=== PATIENT | female | born 1975 | race Caucasian/White ===

== ENCOUNTER 2017-05-07 14:33 | Emergency (ER) | payer BC, OTHER ==
--- NOTE | 2017-05-07 17:47 | RAD ---
INDICATION: Possible intracranial hypertension. COMPARISON: No relevant prior exams available on the [facility] PACS for comparison. TECHNIQUE: Dual energy PA and routine lateral views of the chest were obtained. REPORT: Clear lungs and pleural spaces. The heart, pulmonary vasculature, and mediastinal contours are unremarkable. Unremarkable osseous structures and soft tissue contours. IMPRESSION: No evidence for acute intrathoracic disease.
[2017-05-07 18:12] LABS: Hematocrit 41 % (35-47); Hemoglobin 14.3 g/dl (12.0-16.0); Mean Corpuscular HGB Conc 35 g/dl (31-36); Mean Corpuscular Hemoglobin 32 pg (27-31); Mean Corpuscular Volume 93 fL (80-97); Mean Platelet Volume 9 um3 (7.4-10.4); Red Blood Count 4.46 10^6/ul (4.0-5.4); Red Cell Distribution Width 12 % (10.5-15); Urine Bilirubin Negative (Negative); Urine Glucose Negative (Negative); Urine Nitrite Negative (Negative); White Blood Count 6.2 10^3/ul (3.5-10.8)
[2017-05-07 18:26] LABS: ALT 21 U/L (7-52); AST 18 U/L (13-39); Albumin 4.2 g/dL (3.2-5.2); Alkaline Phosphatase 48 U/L (34-104); Anion Gap 7 mmol/L (2-11); Blood Urea Nitrogen 10 mg/dL (6-24); C Reactive Protein 16.14 mg/L (< 5.00); CO2 Carbon Dioxide 26 mmol/L (22-32); Calcium 9.2 mg/dL (8.6-10.3); Chloride 102 mmol/L (101-111); EGFR African American 106.2 (>60); EGFR Non-African American 82.6 (>60); Globulin 3.2 g/dL (2-4); Glucose 101 mg/dL (70-100); Potassium 3.8 mmol/L (3.5-5.0); Sodium 135 mmol/L (133-145); Total Protein 7.4 g/dL (6.4-8.9)
[2017-05-07 18:56] LABS: TSH (Thyroid Stimulating Horm) 2.61 mcIU/mL (0.34-5.60)
--- NOTE | 2017-05-07 19:07 | ED ---
Lon Fowler Alfonso, scribed for Sanford Lr MD on 05/07/17 at 1727 . Neurological HPI - HPI Summary HPI Summary: This patient is a 42 year old female presenting to [facility] for obstructed field of vision since 5 days ago. She was referred to the ED by her Physician who recommends imaging studies to further investigate an inflamed optic nerve. She describes the obstruction as being in her left eye's center top field of vision. She rates the pain 5/10 in severity. Sx aggravated and alleviated by nothing. Pt reports eye socket pain, photophobia, and hay fever. Pt denies weakness, numbness, urinary incontinence, dizziness, and loss of balance. She denies wearing contacts today. PMHx of migraines. - History of Current Complaint Chief Complaint: EDNeurologicalDeficit Stated Complaint: LT VISION INPAIRMENT Time Seen by Provider: 05/07/17 17:18 Hx Obtained From: Patient Onset/Duration: Sudden Onset, Started days ago - 5 days ago, Still Present Timing: Constant Onset Severity: Moderate Current Severity: Moderate Pain Intensity: 5 Pain Scale Used: 0-10 Numeric Character: Sensory Loss - Positive obstruction in her left eye's center top field of vision Aggravating: Nothing Alleviating: Nothing Associated Signs and Symptoms: Positive: Nothing - Positive eye socket pain, photophobia, and hay fever; negative weakness, numbness, urinary incontinence, dizziness, and loss of balance. - Allergy/Home Medications Allergies/Adverse Reactions: Allergies Allergy/AdvReac Type Severity Reaction Status Date / Time Penicillins Allergy Rash Verified 05/07/17 16:35 PMH/Surg Hx/FS Hx/Imm Hx Endocrine/Hematology History: Denies: Hx Diabetes Cardiovascular History: Denies: Hx Hypertension, Hx Pacemaker/ICD History: Denies: Hx Renal Disease Sensory History: Denies: Hx Hearing Aid Neurological History: Reports: Hx Migraine Psychiatric History: Denies: Hx Panic Disorder Infectious Disease History: No Infectious Disease History: Denies: Traveled Outside the [place] in Last 30 Days - Family History Known Family History: Positive: Cardiac Disease, Renal Disease - Renal Failure - Social History Alcohol Use: Weekly Substance Use Type: Reports: None Hx Tobacco Use: No Smoking Status (MU): Never Smoked Tobacco Review of Systems Positive: Fever - Hay fever Positive: Photophobia, Other - Positive obstruction in her left eye's center top field of vision and eye socket pain ENT: Negative Cardiovascular: Negative Respiratory: Negative Gastrointestinal: Negative Genitourinary: Negative Negative: incontinence Musculoskeletal: Negative Skin: Negative Neurological: Other - Negative dizziness and loss of balance Negative: Weakness, Numbness Psychological: Normal All Other Systems Reviewed And Are Negative: Yes Physical Exam Triage Information Reviewed: Yes Vital Signs On Initial Exam: Initial Vitals Temp Pulse Resp BP Pulse Ox 96.9 F 94 17 143/100 97 05/07/17 14:37 05/07/17 14:37 05/07/17 14:37 05/07/17 14:37 05/07/17 14:37 Vital Signs Reviewed: Yes Appearance: Positive: Well-Appearing, No Pain Distress Skin: Positive: Warm, Skin Color Reflects Adequate Perfusion, Dry Head/Face: Positive: Normal Head/Face Inspection Eyes: Positive: EOMI, JANUSZ, Other: - Papilledema left eye ENT: Positive: Normal ENT inspection Neck: Positive: Supple, Nontender Respiratory/Lung Sounds: Positive: Clear to Auscultation, Breath Sounds Present Cardiovascular: Positive: Tachycardia Abdomen Description: Positive: Nontender, Soft Bowel Sounds: Positive: Present Musculoskeletal: Positive: Normal, Strength/ROM Intact Neurological: Positive: Normal, Sensory/Motor Intact, Alert, Oriented to Person Place, Time Psychiatric: Positive: Affect/Mood Appropriate Diagnostics - Vital Signs Vital Signs Temp Pulse Resp BP Pulse Ox 05/07/17 17:07 96.9 F 94 17 143/100 97 05/07/17 14:37 96.9 F 94 17 143/100 97 - Laboratory Lab Results: Lab Results 05/07/17 05/07/17 05/07/17 Range/Units 17:52 17:52 17:52 WBC 6.2 (3.5-10.8) 10^3/ul RBC 4.46 (4.0-5.4) 10^6/ul Hgb 14.3 (12.0-16.0) g/dl Hct 41 (35-47) % MCV 93 (80-97) fL MCH 32 H (27-31) pg MCHC 35 (31-36) g/dl RDW 12 (10.5-15) % Plt Count 263 (150-450) 10^3/ul MPV 9 (7.4-10.4) um3 Neut % (Auto) 55.9 (38-83) % Lymph % (Auto) 36.5 (25-47) % Orange % (Auto) 5.9 (1-9) % Eos % (Auto) 0.9 (0-6) % Baso % (Auto) 0.8 (0-2) % Absolute Neuts (auto) 3.5 (1.5-7.7) 10^3/ul Absolute Lymphs (auto) 2.3 (1.0-4.8) 10^3/ul Absolute Monos (auto) 0.4 (0-0.8) 10^3/ul Absolute Eos (auto) 0.1 (0-0.6) 10^3/ul Absolute Basos (auto) 0 (0-0.2) 10^3/ul Absolute Nucleated RBC 0 10^3/ul Nucleated RBC % 0.1 INR (Anticoag Therapy) 0.89 (0.89-1.11) APTT 27.8 (26.0-36.3) seconds Sodium 135 (133-145) mmol/L Potassium 3.8 (3.5-5.0) mmol/L Chloride 102 (101-111) mmol/L Carbon Dioxide 26 (22-32) mmol/L Anion Gap 7 (2-11) mmol/L BUN 10 (6-24) mg/dL Creatinine 0.77 (0.51-0.95) mg/dL Est GFR ( Amer) 106.2 (>60) Est GFR (Non-Af Amer) 82.6 (>60) BUN/Creatinine Ratio 13.0 (8-20) Glucose 101 H (70-100) mg/dL Lactic Acid (0.5-2.0) mmol/L Calcium 9.2 (8.6-10.3) mg/dL Total Bilirubin 0.30 (0.2-1.0) mg/dL AST 18 (13-39) U/L ALT 21 (7-52) U/L Alkaline Phosphatase 48 (34-104) U/L C-Reactive Protein 16.14 H (< 5.00) mg/L Total Protein 7.4 (6.4-8.9) g/dL Albumin 4.2 (3.2-5.2) g/dL Globulin 3.2 (2-4) g/dL Albumin/Globulin Ratio 1.3 (1-3) TSH 2.61 (0.34-5.60) mcIU/mL Beta HCG, Quant < 0.60 mIU/mL Urine Color Urine Appearance Urine pH (5-9) Ur Specific [place] (1.010-1.030) Urine Protein (Negative) Urine Ketones (Negative) Urine Blood (Negative) Urine Nitrate (Negative) Urine Bilirubin (Negative) Urine Urobilinogen (Negative) Ur Leukocyte Esterase (Negative) Urine Glucose (Negative) 05/07/17 05/07/17 Range/Units 17:52 17:52 WBC (3.5-10.8) 10^3/ul RBC (4.0-5.4) 10^6/ul Hgb (12.0-16.0) g/dl Hct (35-47) % MCV (80-97) fL MCH (27-31) pg MCHC (31-36) g/dl RDW (10.5-15) % Plt Count (150-450) 10^3/ul MPV (7.4-10.4) um3 Neut % (Auto) (38-83) % Lymph % (Auto) (25-47) % Orange % (Auto) (1-9) % Eos % (Auto) (0-6) % Baso % (Auto) (0-2) % Absolute Neuts (auto) (1.5-7.7) 10^3/ul Absolute Lymphs (auto) (1.0-4.8) 10^3/ul Absolute Monos (auto) (0-0.8) 10^3/ul Absolute Eos (auto) (0-0.6) 10^3/ul Absolute Basos (auto) (0-0.2) 10^3/ul Absolute Nucleated RBC 10^3/ul Nucleated RBC % INR (Anticoag Therapy) (0.89-1.11) APTT (26.0-36.3) seconds Sodium (133-145) mmol/L Potassium (3.5-5.0) mmol/L Chloride (101-111) mmol/L Carbon Dioxide (22-32) mmol/L Anion Gap (2-11) mmol/L BUN (6-24) mg/dL Creatinine (0.51-0.95) mg/dL Est GFR ( Amer) (>60) Est GFR (Non-Af Amer) (>60) BUN/Creatinine Ratio (8-20) Glucose (70-100) mg/dL Lactic Acid 0.9 (0.5-2.0) mmol/L Calcium (8.6-10.3) mg/dL Total Bilirubin (0.2-1.0) mg/dL AST (13-39) U/L ALT (7-52) U/L Alkaline Phosphatase (34-104) U/L C-Reactive Protein (< 5.00) mg/L Total Protein (6.4-8.9) g/dL Albumin (3.2-5.2) g/dL Globulin (2-4) g/dL Albumin/Globulin Ratio (1-3) TSH (0.34-5.60) mcIU/mL Beta HCG, Quant mIU/mL Urine Color Straw Urine Appearance Clear Urine pH 7.0 (5-9) Ur Specific [place] 1.005 L (1.010-1.030) Urine Protein Negative (Negative) Urine Ketones Negative (Negative) Urine Blood Negative (Negative) Urine Nitrate Negative (Negative) Urine Bilirubin Negative (Negative) Urine Urobilinogen Negative (Negative) Ur Leukocyte Esterase Negative (Negative) Urine Glucose Negative (Negative) Result Diagrams: 05/07/17 17:52 05/07/17 17:52 Lab Statement: Any lab studies that have been ordered have been reviewed, and results considered in the medical decision making process. - Radiology CXR Radiology Interpretation Completed By: Radiologist - No evidence for acute intrathoracic disease. - EKG 1800 Cardiac Rate: NL - BPM 82 EKG Rhythm: Sinus Rhythm ST Segment: Normal Ectopy: None - Additional Comments Diagnostic Additional Comments: MRI Brain : Pending official radiologist interpretation. MRV Head : Pending official radiologist interpretation. Course/Dx - Course Course Of Treatment: NO CRITICAL CARE TIME. DR BLOUNT SAW PATIENT IN ED. MRI RESULTS AND DISPOSITION PENDING AT SHIFT CHANGE. - Diagnoses Provider Diagnoses: Papilledema, Vision abnormalities - Physician Notifications Discussed Care Of Patient With: Abimael Blount Discharge - Discharge Plan Condition: Stable Disposition: OTHER Discharge Disposition Comment: . Referrals: Va Hutson, JESSICA [Primary Care Provider] - The documentation as recorded by the scribe, Caetta,Oneil accurately reflects the service I personally performed and the decisions made by me, Sanford Lr MD.
--- NOTE | 2017-05-07 19:38 | RAD ---
Indication: Papilledema. Question pseudotumor cerebri. Comparison: December 14, 2016 MRI. Technique: [employer] 1.5 [place] [id number] with GEM suite. MRI brain without contrast. Report: Diffusion series is negative for acute or subacute ischemia. Susceptibility series is negative for stigmata of hemosiderin deposition to indicate previous hemorrhage. Unremarkable cerebral sulci, ventricles, and basal cisterns. Unchanged small periventricular and subcortical white matter hyperintensities on T2 and FLAIR compared with the prior exam. Dominant lesion on the RIGHT at the RIGHT frontal lobe periventricular region measures 0.9 cm without change. Dominant lesion on the LEFT at the LEFT frontal lobe at the level of the centrum semiovale measures 0.7 cm maximum dimension without change. No new white matter lesions or associated mass effect. Preserved major intracranial flow-voids. Unremarkable orbital contents. Negative for significant prominence of the subarachnoid space around the optic nerves. Negative for gross flattening of the posterior sclera or intraocular protrusion of the optic nerve head on either side. Unremarkable pituitary gland without empty sella. Grossly clear paranasal sinuses and mastoid air spaces. No suspicious calvarial or skull base lesion evident. Unremarkable scalp. IMPRESSION: 1. Unchanged mild burden of nonspecific white matter T2/flair hyperintensities compared with the December 14, 2016 exam. While nonspecific the differential includes signal abnormalities seen in association with migraine headaches as well as demyelinating disease and sequela of previous infection or inflammation. 2. Negative for MRI findings to indicate pseudotumor cerebri.
--- NOTE | 2017-05-07 19:45 | RAD ---
Indication: Papilledema. Assess for venous sinus stenosis. Comparison: MRI of the same date. Technique: [employer] [place] 1.5 Esperanza [id number] with GEM suite. Noncontrast MRV of the brain. Report: No dural venous sinus stenosis or thrombosis evident. Variant mild LEFT transverse sinus dominance. IMPRESSION: Negative MRV of the brain.
--- NOTE | 2017-05-07 22:05 | PN ---
Progress Note - Progress Note Date of Service: 05/07/17 Note: Procedure note Procedure name: Lumbar puncture Date and time: 05/07/17 at 2100 Provider: Abimael Blount MD After obtaining informed consent, the patient was positioned on left lateral decubitus position. Time out was performed. The lower lumbar areas was prepped and draped in sterile fashion. 3 cc of lidocaine was used for local anesthesia around the L4-5 region. The spinal needle was inserted in the intervertebral space L4-5. Opening Pressure: 130 mm H2O Total of 8 cc of clear CSF fluid removed. Closing pressure: 130 mm H2O The spinal needles was taken out after removing the CSF fluid. 3 tubes were sent to the labs. The patient tolerated the procedure well with no side effects.
[2017-05-07 22:18] LABS: CSF Glucose 61 mg/dL (40-70)
[2017-05-07 22:57] LABS: Body Fluid Appearance Clear
[2017-05-07 22:58] LABS: BF RBC Count #1 6; BF WBC Count #1 0; BF WBC Count #2 0; WBC counts within 15%? Yes
[2017-05-07 22:59] LABS: BF RBC Count #2 4
[2017-05-07 23:00] LABS: RBC counts within 6%? Yes
[2017-05-07 23:02] LABS: Body Fluid WBC 0 /mcL
[2017-05-07 23:15] LABS: Body Fluid Total Cells Counted 22
[2017-05-07 23:28] VITALS: BP 144/88
--- NOTE | 2017-05-08 11:02 | CONS ---
CC: Dr. Guardado; Va Carmona NP NEUROLOGY CONSULTATION: DATE OF CONSULT: 05/07/17 REQUESTING PHYSICIAN: . PRIMARY CARE PHYSICIAN: Va Carmona NP REASON FOR CONSULT: Left vision impairment, papilledema, concern for increased intracranial hypertension. HISTORY OF PRESENT ILLNESS: Patient is a 42-year-old female with history of chronic migraine headaches in the past 15 years. Historically, her migraine headaches are bifrontal, associated with photophobia and had tried on several medications and eventually Dr. Guardado was able to find a combination of medications that relatively work for her: Relpax and ketoprofen that was helpful for her. Since about 5 days ago, she had noted a decreased in her visual field. Today, she had an ophthalmological exam at her media liaison officer office , Dr. Marinelli, who detected papilledema, left more than right, and she was sent to the ER for further evaluation. The patient continues to have headache now, which is bifrontal but slightly different from her usual migraine-type headaches. PAST MEDICAL HISTORY: Other than migraine headaches, no significant past medical history. PAST SURGICAL HISTORY: None. FAMILY HISTORY: Father has a history of GA. Maternal grandfather had a history of migraine headaches for a long period of time; in the past 2 years, he has been diagnosed with Alzheimer's disease. SOCIAL HISTORY: The patient does not smoke, drinks only socially. No drugs. She has an administrative work. ALLERGIES: PENICILLIN. MEDICATIONS: As mentioned above Relpax and ketoprofen. She is also on control pills. She take cymbalta for anxiety. PHYSICAL EXAMINATION: Vital Signs: Temperature 96.9, pulse 82, respiratory rate 17, O2 sat 97, blood pressure 143/100. Pupils are dilated, about 4 mm, sluggishly reactive to light (probably still the effect of eye drops from her media liaison officer exam earlier today). On funduscopy, the disk margins are blurred bilaterally, left more than right. Extraocular movements are intact. By confrontation, she has slight decreased in visual field on the superior part of the left eye. Face is symmetric. Tongue is in midline. Strength is 5/5 throughout. Sensory exam is intact to light touch and pinprick bilaterally. [id number] is intact bilaterally. Gait is narrow-based and steady. Heart sounds have regular rate and rhythm. LAB DATA: Sodium 135, potassium 3.8. BUN 10, creatinine 0.77, AST 18, ALT 21. WBC 6.2, hemoglobin 14.3, hematocrit 41, platelets 263. IMAGING: She had an MRI brain on 12/14/16, which shows multiple foci of elevated T2 FLAIR signal within the periventricular and subcortical white matter. While these findings are nonspecific that can be seen in association with migraine headaches and as the sequelae of previous infection or inflammation. Demyelinating disease is also within the differential but it is considered less likely in the absence of appropriate clinical presentation. Chronic small vessel ischemia is also in the differential is considered unlikely. ASSESSMENT AND PLAN: A 42-year-old female with history of migraine headaches now with papilledema which has affected her visual field. The plan is to rule out sinus venous thrombosis and get an MRI. We will plan for an LP to determine the opening pressure. ADDENDUM on 05/08/17 at 13:00 By the time of the edit of this note, the patient completed an MRV and MRI of the brain on 05/07/17. MRV of the brain was negative for any signs of thrombosis. MRI brain was stable with no change compared to the one in December of this year. LP was performed: opening pressure was not high (130 mmH2O opening pressure- 8 cc removed, closing pressure the same). Basic labs of CSF unremarkable. Lyme IgG/IgM pending. The patient will follow up with her neurologist and media liaison officer. Time spent at bedside at least 45 minutes. [id number]/[facility] #: [id number] [place]
== END 2017-05-07 23:34 ==
LOC: ED 14:33
DX: H47.10 Unspecified papilledema (principal); H53.9 Unspecified visual disturbance
CPT/HCPCS: 36415; 70544; 70551; 71020; 80053; 81003; 82945; 83605; 84157; 84443; 84702; 85025; 85610; 85730; 86140; 86592; 87070; 87205; 89051; 93005; 99283

== ENCOUNTER 2020-12-02 10:41 | Inpatient (IN) ==
[2020-12-02] MEDS ORDERED: NS 0.9% 1000 ml BAG 1,000 ML IV.FLUID IV ONE (11:10)
[2020-12-02] MEDS ORDERED: Dexamethasone IV 4 MG/ML VIAL 1 ml VIAL IV SLOW PU ONE (11:17)
[2020-12-02] MEDS ORDERED: Cefepime 2 GM in NS 0.9% 50 ML 50 ML IVPB ONE (11:18)
[2020-12-02] MEDS ORDERED: metroNIDAZOLE IV 500 MG/100ML 500 MG/100 ML BAG IVPB ONE (11:18)
[2020-12-02] MEDS ORDERED: NS 0.9% 50 ML 50 ML ONE (11:24)
[2020-12-02 11:49] LABS: ABS Lymphocytes 0.7 10^3/ul (1.0-4.8); ABS Monocytes 0.5 10^3/ul (0-0.8); ABS Neutrophils 13.3 10^3/ul (1.5-7.7); Hematocrit 56 % (35-47); Hemoglobin 18.9 g/dL (12.0-16.0); Lymphocyte % 4.8 %; Mean Corpuscular HGB Conc 34 g/dL (31-36); Mean Corpuscular Hemoglobin 32 pg (27-31); Mean Corpuscular Volume 93 fL (80-97); Mean Platelet Volume 9.6 fL (7.4-10.4); Nucleated Red Blood Cells % 0.1; Platelet Count 309 10^3/uL (150-450); Red Blood Count 5.99 10^6 /uL (3.70-4.87); Red Cell Distribution Width 13 % (10-15); White Blood Count 14.5 10^3/uL (3.5-10.8)
[2020-12-02] MEDS ORDERED: NS 0.9% 1000 ml BAG 1,000 ML IV ONE (11:58)
[2020-12-02] MEDS ORDERED: Cefepime 2 GM IV - ED ONCE IV ONE (12:00)
[2020-12-02 12:23] LABS: Troponin I 0.01 ng/mL (<0.03)
[2020-12-02 12:27] LABS: HCG Pregnancy < 0.60 mIU/mL
[2020-12-02] MEDS ORDERED: Vancomycin 1,500 MG in NS 0.9% 250 ml 250 ML IVPB ONE (12:30)
[2020-12-02 12:32] LABS: TSH Ultra Thyroid Stim Horm 4.63 mcIU/mL (0.34-5.60)
[2020-12-02 12:34] LABS: Activated Partial Thrombo Time 24.6 seconds (26.0-38.0); Fibrinogen 252.2 mg/dL (110.8-404.3); INR 1.25 (0.82-1.09)
[2020-12-02 12:48] LABS: LDH 348 U/L (140-271)
[2020-12-02 12:53] LABS: ALT 363 U/L (7-52); AST 209 U/L (13-39); Albumin 4.6 g/dL (3.2-5.2); Albumin/Globulin Ratio 1.2 (1-3); Alkaline Phosphatase 240 U/L (34-104); Anion Gap 19 mmol/L (2-11); BUN/Creatinine Ratio 11.1 (8-20); Blood Urea Nitrogen 16 mg/dL (6-24); C Reactive Protein 62.57 mg/L (<8.01); CO2 Carbon Dioxide 16 mmol/L (22-32); Calcium 8.3 mg/dL (8.6-10.3); Chloride 96 mmol/L (101-111); Creatine Kinase 68 U/L (10-223); EGFR African American 47.8 (>60); EGFR Non-African American 39.5 (>60); Globulin 3.7 g/dL (2-4); Glucose 199 mg/dL (70-100); Sodium 131 mmol/L (135-145); Total Protein 8.3 g/dL (6.4-8.9)
[2020-12-02] MEDS ORDERED: Iodixanol (CONTRAST) 320 MG/ML 100 ML SDV IV ONE (13:07)
[2020-12-02 13:20] LABS: Erythrocyte Sed Rate 7 mm/Hr (0-19)
[2020-12-02] MEDS ORDERED: Morphine 4 MG/ML VIAL (1 ml) IV ONE (14:29)
[2020-12-02 14:55] LABS: Amylase 3931 U/L (29-103); Lipase 10682 U/L (11.0-82.0)
[2020-12-02 14:57] LABS: Influenza A Molecular Negative (Negative); Influenza B Molecular Negative (Negative)
[2020-12-02] MEDS ORDERED: NS 0.9% 250 ml 250 ML ONE (14:58)
[2020-12-02] MEDS ORDERED: Morphine 4 MG/ML VIAL (1 ml) IV PRN (15:22)
[2020-12-02] MEDS ORDERED: Lactated Ringers 1000 ml BAG 1,000 ML IV SCH (16:00)
[2020-12-02 16:47] LABS: Cholesterol 195 mg/dL; HDL Cholesterol 58.7 mg/dL; LDL Cholesterol 111 mg/dL; Triglycerides 125 mg/dL
[2020-12-02 17:39] LABS: Urine Appearance Cloudy; Urine Bilirubin Negative (Negative); Urine Blood 1+ (Negative); Urine Color Amber; Urine Glucose Negative (Negative); Urine Ketones 1+ (Negative); Urine Nitrite Negative (Negative); Urine Protein 1+(30 mg/dL) (Negative); Urine Urobilinogen Negative (Negative)
[2020-12-02 17:40] LABS: Urine Bacteria Absent (Absent); Urine Red Blood Cell Trace(0-2/hpf) (Absent); Urine Squamous Epithelial Cell Present (Absent); Urine White Blood Cell 1+(6-10/hpf) (Absent)
[2020-12-02] MEDS: Lactated Ringers 1000 ml BAG 1,000 ML IV SCH (18:20)
[2020-12-02] MEDS: Coenzyme Q10 CAP (NF) 100 MG PO SCH (22:02)
[2020-12-02] MEDS: Heparin 5000 UNITS/ML 1 mL VIAL SUBCUT SCH (22:02)
[2020-12-03 05:30] LABS: ABS Lymphocytes 0.9 10^3/ul (1.0-4.8); ABS Monocytes 0.5 10^3/ul (0-0.8); ABS Neutrophils 13.8 10^3/ul (1.5-7.7); Hematocrit 44 % (35-47); Lymphocyte % 5.9 %; Mean Corpuscular HGB Conc 34 g/dL (31-36); Mean Corpuscular Hemoglobin 31 pg (27-31); Mean Corpuscular Volume 92 fL (80-97); Mean Platelet Volume 9.2 fL (7.4-10.4); Nucleated Red Blood Cells % 0.1; Platelet Count 263 10^3/uL (150-450); Red Blood Count 4.79 10^6 /uL (3.70-4.87); Red Cell Distribution Width 13 % (10-15); White Blood Count 15.3 10^3/uL (3.5-10.8)
[2020-12-03 05:54] LABS: Albumin 3.4 g/dL (3.2-5.2); Albumin/Globulin Ratio 1.3 (1-3); BUN/Creatinine Ratio 22.9 (8-20); EGFR African American 90.4 (>60); EGFR Non-African American 74.7 (>60); Globulin 2.6 g/dL (2-4); Total Bilirubin 1.2 mg/dL (0.2-1.0)
[2020-12-03] MEDS: Heparin 5000 UNITS/ML 1 mL VIAL SUBCUT SCH (05:54)
[2020-12-03 06:05] LABS: Calcium 4.9 mg/dL (8.6-10.3)
[2020-12-03] MEDS ORDERED: Calcium Gluconate 2 GM in NS 0.9% 100 ml BAG 100 ML IVPB ONE (06:12)
[2020-12-03 06:35] LABS: Magnesium 1.4 mg/dL (1.9-2.7)
[2020-12-03] MEDS ORDERED: Magnesium Sulf 4 GM/100 ML IV 4,000 MG/100 ML BAG IVPB ONE (07:25)
[2020-12-03] MEDS ORDERED: metroNIDAZOLE IV 250 MG/50ML 50 ML IVPB SCH (08:00)
[2020-12-03] MEDS: Cefepime 1 GM in Dextrose 1 GM/50 ML BAG IV SCH ×2 (09:01→20:08)
[2020-12-03] MEDS: Methylphenidate ER 18 mg TAB PO SCH (09:09)
[2020-12-03] MEDS: DULoxetine DR 20 mg CAP PO SCH (09:09)
[2020-12-03] MEDS: Coenzyme Q10 CAP (NF) 100 MG PO SCH ×3 (09:10→20:09)
[2020-12-03] MEDS: Enoxaparin 40 MG/0.4 ML SYR SUBCUT SCH (09:10)
[2020-12-03 13:07] LABS: BUN/Creatinine Ratio 23.6 (8-20); EGFR African American 65.3 (>60); Magnesium 3.1 mg/dL (1.9-2.7); Potassium 4.2 mmol/L (3.5-5.0)
[2020-12-03 13:12] LABS: Calcium 4.5 mg/dL (8.6-10.3)
[2020-12-03] MEDS ORDERED: Calcium Gluconate 2 GM in NS 0.9% 100 ml BAG 100 ML IV ONE (13:24)
[2020-12-03 14:47] LABS: Vitamin D Total 25(OH) 22.4 ng/mL (20-50)
[2020-12-03] MEDS: Lactated Ringers 1000 ml BAG 1,000 ML IV SCH (15:03)
[2020-12-03] MEDS: metroNIDAZOLE IV 500 MG/100ML 500 MG/100 ML BAG IVPB SCH (16:01)
[2020-12-03] MEDS ORDERED: Calcium Gluconate 4 GM in NS 0.9% 250 ml 250 ML IVPB ONE (18:20)
[2020-12-03 20:57] LABS: Chloride 105 mmol/L (101-111); Sodium 129 mmol/L (135-145)
[2020-12-03 20:59] LABS: CO2 Carbon Dioxide 13 mmol/L (22-32); Calcium 4.2 mg/dL (8.6-10.3)
[2020-12-03 21:01] LABS: Anion Gap 11 mmol/L (2-11)
[2020-12-03 21:02] LABS: BUN/Creatinine Ratio 17.7 (8-20); Blood Urea Nitrogen 33 mg/dL (6-24); EGFR African American 35.6 (>60); EGFR Non-African American 29.4 (>60); Glucose 186 mg/dL (70-100); Phosphorus 2.6 mg/dL (2.5-5.0)
[2020-12-03] MEDS ORDERED: Calcium Gluconate 4 GM in NS 0.9% 250 ml 250 ML IV ONE (21:30)
[2020-12-03 22:37] LABS: BUN/Creatinine Ratio 18.3 (8-20); EGFR African American 33.3 (>60); EGFR Non-African American 27.5 (>60); Magnesium 2.2 mg/dL (1.9-2.7); Potassium 4.4 mmol/L (3.5-5.0)
[2020-12-03 22:43] LABS: Calcium 4.5 mg/dL (8.6-10.3)
[2020-12-04] MEDS: Lactated Ringers 1000 ml BAG 1,000 ML IV SCH (00:02)
[2020-12-04] MEDS: metroNIDAZOLE IV 500 MG/100ML 500 MG/100 ML BAG IVPB SCH ×2 (00:03→08:31)
[2020-12-04] MEDS: Cefepime 1 GM in Dextrose 1 GM/50 ML BAG IV SCH (07:29)
[2020-12-04] MEDS: Enoxaparin 40 MG/0.4 ML SYR SUBCUT SCH (08:22)
[2020-12-04] MEDS: Cholecalciferol (VIT D3) 1,000 unit TAB PO SCH (08:22)
[2020-12-04] MEDS: Methylphenidate ER 18 mg TAB PO SCH (08:22)
[2020-12-04] MEDS: DULoxetine DR 20 mg CAP PO SCH (08:22)
[2020-12-04] MEDS: Coenzyme Q10 CAP (NF) 100 MG PO SCH (08:23)
[2020-12-04] MEDS ORDERED: Lactated Ringers 1000 ml BAG 1,000 ML IV SCH (09:24)
[2020-12-04 10:03] LABS: Chloride 102 mmol/L (101-111); Sodium 129 mmol/L (135-145)
[2020-12-04 10:08] LABS: BUN/Creatinine Ratio 14.9 (8-20); Blood Urea Nitrogen 44 mg/dL (6-24); Glucose 147 mg/dL (70-100)
[2020-12-04 10:09] LABS: ALT 73 U/L (7-52); Albumin/Globulin Ratio 1.4 (1-3); Alkaline Phosphatase 78 U/L (34-104); CO2 Carbon Dioxide 13 mmol/L (22-32); Calcium 4.2 mg/dL (8.6-10.3); EGFR African American 20.9 (>60); EGFR Non-African American 17.3 (>60); Globulin 2.2 g/dL (2-4); Phosphorus 2.9 mg/dL (2.5-5.0); Total Protein 5.2 g/dL (6.4-8.9)
[2020-12-04 10:12] LABS: Anion Gap 14 mmol/L (2-11)
[2020-12-04] MEDS ORDERED: metroNIDAZOLE IV 500 MG/100ML 500 MG/100 ML BAG IVPB SCH (11:00)
[2020-12-04] MEDS ORDERED: Enoxaparin 30 MG/0.3 ML SYR SUBCUT SCH (11:00)
[2020-12-04] MEDS ORDERED: Cefepime 1 GM in Dextrose 1 GM/50 ML BAG IV SCH (11:00)
[2020-12-04 12:07] LABS: Urine Appearance Cloudy; Urine Bilirubin Negative (Negative); Urine Blood Negative (Negative); Urine Color Amber; Urine Glucose Negative (Negative); Urine Ketones Negative (Negative); Urine Nitrite Negative (Negative); Urine Protein 2+(100 mg/dL) (Negative); Urine Specific Gravity 1.029 (1.010-1.030); Urine Urobilinogen Negative (Negative)
[2020-12-04 12:20] LABS: Urine Bacteria Absent (Absent); Urine Red Blood Cell 1+(3-5/hpf) (Absent); Urine Squamous Epithelial Cell Present (Absent); Urine White Blood Cell 1+(6-10/hpf) (Absent)
[2020-12-04 14:08] LABS: BUN/Creatinine Ratio 14.2 (8-20); EGFR African American 17.4 (>60); EGFR Non-African American 14.4 (>60); Potassium 4.8 mmol/L (3.5-5.0)
[2020-12-04 14:11] LABS: ABS Monocytes 0.6 10^3/ul (0-0.8); Hematocrit 41 % (35-47); Hemoglobin 13.4 g/dL (12.0-16.0); Lymphocyte % 9.3 %; Mean Corpuscular HGB Conc 32 g/dL (31-36); Mean Corpuscular Hemoglobin 32 pg (27-31); Mean Corpuscular Volume 97 fL (80-97); Mean Platelet Volume 9.1 fL (7.4-10.4); Platelet Count 266 10^3/uL (150-450); Red Blood Count 4.25 10^6 /uL (3.70-4.87); Red Cell Distribution Width 14 % (10-15); White Blood Count 10.5 10^3/uL (3.5-10.8)
[2020-12-04 14:53] LABS: Creatine Kinase 639 U/L (10-223)
[2020-12-04] MEDS ORDERED: Calcium Gluconate 4 GM in NS 0.9% 250 ml 250 ML IVPB ONE (14:53)
[2020-12-04] MEDS ORDERED: Furosemide 100 mg/10 ml IV VIAL IV ONE (15:30)
[2020-12-04] MEDS ORDERED: Calcium Gluconate 2 GM in NS 0.9% 100 ml BAG 100 ML IV ONE (15:30)
[2020-12-04] MEDS: Ondansetron 4 mg VIAL 2 MG/ML 2 ml VIAL IV PRN (15:31)
[2020-12-04] MEDS ORDERED: Metoclopramide 5 MG/ML VIAL (10 mg) IV SLOW PU SCH (16:00)
[2020-12-04] MEDS: Pantoprazole VIAL 40 MG VIAL IV SCH (16:23)
[2020-12-04 19:18] LABS: Magnesium 1.9 mg/dL (1.9-2.7)
[2020-12-04 19:23] LABS: Phosphorus 2.9 mg/dL (2.5-5.0)
[2020-12-04] MEDS: Metoclopramide 5 MG/ML VIAL (10 mg) IV SLOW PU SCH (23:28)
[2020-12-04 23:29] LABS: BUN/Creatinine Ratio 14.1 (8-20); Blood Urea Nitrogen 64 mg/dL (6-24); C Reactive Protein 246.99 mg/L (<8.01); Chloride 101 mmol/L (101-111); EGFR African American 12.7 (>60); EGFR Non-African American 10.5 (>60); Glucose 150 mg/dL (70-100); Potassium 4.8 mmol/L (3.5-5.0); Sodium 127 mmol/L (135-145)
[2020-12-04 23:37] LABS: Anion Gap 13 mmol/L (2-11); CO2 Carbon Dioxide 13 mmol/L (22-32); Calcium < 4.0 mg/dL (8.6-10.3)
[2020-12-05] MEDS ORDERED: Calcium Gluconate 2 GM in NS 0.9% 100 ml BAG 100 ML IV ONE (00:50)
[2020-12-05] MEDS ORDERED: CALCIUM GLUCONATE IVPB ONE (01:00)
[2020-12-05] MEDS ORDERED: D5W IVPB ONE (01:00)
[2020-12-05] MEDS: Ondansetron 4 mg VIAL 2 MG/ML 2 ml VIAL IV PRN (04:07)
[2020-12-05 04:41] LABS: Hematocrit 34 % (35-47); Hemoglobin 11.4 g/dL (12.0-16.0); Mean Corpuscular HGB Conc 34 g/dL (31-36); Mean Corpuscular Hemoglobin 32 pg (27-31); Mean Corpuscular Volume 94 fL (80-97); Mean Platelet Volume 8.7 fL (7.4-10.4); Platelet Count 289 10^3/uL (150-450); Red Blood Count 3.57 10^6 /uL (3.70-4.87); Red Cell Distribution Width 14 % (10-15); White Blood Count 8.6 10^3/uL (3.5-10.8)
[2020-12-05 05:33] LABS: Polychromasia 1+
[2020-12-05] MEDS: Cholecalciferol (VIT D3) 1,000 unit TAB PO SCH ×2 (07:51→09:39)
[2020-12-05] MEDS: Cefepime 1 GM in Dextrose 1 GM/50 ML BAG IV SCH (07:51)
[2020-12-05] MEDS: Pantoprazole VIAL 40 MG VIAL IV SCH (07:51)
[2020-12-05] MEDS: Metoclopramide 5 MG/ML VIAL (10 mg) IV SLOW PU SCH ×4 (07:52→23:40)
[2020-12-05] MEDS ORDERED: Midazolam 2 mg/2 ml VIAL 1 mg/ml 2 ml VIAL (2 mg) ONE (09:07)
[2020-12-05] MEDS ORDERED: Lidocaine 1% VIAL 10 MG/ML VIAL ONE (09:14)
[2020-12-05 09:18] LABS: BUN/Creatinine Ratio 13.9 (8-20); Calcium 4.1 mg/dL (8.6-10.3); EGFR African American 11.5 (>60); EGFR Non-African American 9.5 (>60); Potassium 4.9 mmol/L (3.5-5.0)
[2020-12-05] MEDS ORDERED: Lidocaine 1% MPF 5 ML VIAL ONE (11:00)
[2020-12-05] MEDS ORDERED: Midazolam 2 mg/2 ml VIAL 1 mg/ml 2 ml VIAL (2 mg) IV SLOW PU ONE (11:00)
[2020-12-05] MEDS ORDERED: metroNIDAZOLE IV 500 MG/100ML 500 MG/100 ML BAG IVPB SCH (11:00)
[2020-12-05] MEDS: Heparin 1,000 UNIT/ML 10 ml (10,000 UNITS) CATHLAB/DIALYSIS DIALYSIS ONE ×5 (11:15→16:09)
[2020-12-05 12:33] LABS: Hepatitis B Surface Antigen Nonreactive (Nonreactive)
[2020-12-05 12:51] LABS: Hepatitis B Surface Ab Not Immune (Immune)
[2020-12-05] MEDS ORDERED: Benzocaine/Menthol LOZ PO PRN (12:53)
[2020-12-05] MEDS ORDERED: Albumin Human 25% 25 GM/100 ML BTL IV ONE (15:00)
[2020-12-05] MEDS ORDERED: Lorazepam PYXIS KEY PRN (16:53)
[2020-12-05 16:55] LABS: BUN/Creatinine Ratio 11.9 (8-20); Blood Urea Nitrogen 37 mg/dL (6-24); CO2 Carbon Dioxide 18 mmol/L (22-32); Chloride 99 mmol/L (101-111); EGFR African American 19.6 (>60); EGFR Non-African American 16.2 (>60); Glucose 149 mg/dL (70-100); Magnesium 1.7 mg/dL (1.9-2.7); Sodium 131 mmol/L (135-145)
[2020-12-05 17:08] LABS: Calcium 5.9 mg/dL (8.6-10.3)
[2020-12-05 17:09] LABS: Anion Gap 14 mmol/L (2-11)
[2020-12-05] MEDS ORDERED: Magnesium Sulfate 2 gm BAG 2 GM/50 ML BAG IVPB ONE (17:29)
[2020-12-05] MEDS: LORazepam 2 mg VIAL 1 ml IV PUSH PRN ×2 (18:26→23:02)
[2020-12-05] MEDS: Heparin 5000 UNITS/ML 1 mL VIAL SUBCUT SCH (21:05)
[2020-12-05] MEDS: Albuterol HFA INHALER 8 gm MDI INH PRN (21:44)
[2020-12-06] MEDS: Albuterol HFA INHALER 8 gm MDI INH PRN (01:49)
[2020-12-06] MEDS: LORazepam 2 mg VIAL 1 ml IV PUSH PRN ×2 (04:00→19:59)
[2020-12-06] MEDS: metroNIDAZOLE IV 500 MG/100ML 500 MG/100 ML BAG IVPB SCH ×2 (04:00→17:03)
[2020-12-06] MEDS: Ondansetron 4 mg VIAL 2 MG/ML 2 ml VIAL IV PRN ×2 (04:19→08:28)
[2020-12-06 04:24] LABS: Hematocrit 30 % (35-47); Hemoglobin 10.4 g/dL (12.0-16.0); Mean Corpuscular HGB Conc 34 g/dL (31-36); Mean Corpuscular Hemoglobin 32 pg (27-31); Mean Corpuscular Volume 93 fL (80-97); Mean Platelet Volume 8.2 fL (7.4-10.4); Platelet Count 255 10^3/uL (150-450); Red Blood Count 3.26 10^6 /uL (3.70-4.87); Red Cell Distribution Width 14 % (10-15)
[2020-12-06 04:46] LABS: Polychromasia 2+
[2020-12-06 04:47] LABS: ABS Monocytes 0.5 10^3/ul (0-0.8); ABS Neutrophils 7.4 10^3/ul (1.5-7.7); Lymphocyte % 10.8 %; Nucleated Red Blood Cells % 0.1
[2020-12-06 04:51] LABS: BUN/Creatinine Ratio 11.4 (8-20); EGFR African American 12.7 (>60); EGFR Non-African American 10.5 (>60); Magnesium 2.3 mg/dL (1.9-2.7); Phosphorus 3.8 mg/dL (2.5-5.0); Potassium 3.9 mmol/L (3.5-5.0)
[2020-12-06 05:12] LABS: Calcium 4.3 mg/dL (8.6-10.3)
[2020-12-06] MEDS: Heparin 1,000 UNIT/ML 10 ml (10,000 UNITS) CATHLAB/DIALYSIS DIALYSIS ONE ×7 (07:28→14:09)
[2020-12-06] MEDS: Heparin 5000 UNITS/ML 1 mL VIAL SUBCUT SCH ×2 (11:34→20:04)
[2020-12-06] MEDS ORDERED: Senna TAB 8.6 mg TAB PO PRN (11:46)
[2020-12-06] MEDS ORDERED: Potassium Chlor 20 meq TAB.ER PO ONE (11:57)
[2020-12-06] MEDS ORDERED: Heparin *DIALYSIS* ONLY 1,000 UNITS/ML VIAL DIALYSIS ONE (12:00)
[2020-12-06] MEDS ORDERED: Albumin Human 25% 25 GM/100 ML BTL IV ONE (14:00)
[2020-12-06] MEDS ORDERED: Calcium Gluconate 3 GM in NS 0.9% 250 ml 250 ML IV ONE (14:00)
[2020-12-06] MEDS: Metoclopramide 5 MG/ML VIAL (10 mg) IV SLOW PU SCH ×2 (14:04→20:04)
[2020-12-06] MEDS: Pantoprazole VIAL 40 MG VIAL IV SCH (14:04)
[2020-12-06] MEDS: KCL 10 MEQ/50 ML IVPREMIX 10 MEQ/50 ML BAG IV SCH ×2 (14:05→17:03)
[2020-12-06] MEDS: Cefepime 1 GM in Dextrose 1 GM/50 ML BAG IV SCH (14:21)
[2020-12-06 18:53] LABS: BUN/Creatinine Ratio 9.6 (8-20); Blood Urea Nitrogen 24 mg/dL (6-24); CO2 Carbon Dioxide 19 mmol/L (22-32); Chloride 106 mmol/L (101-111); EGFR African American 25.4 (>60); Glucose 146 mg/dL (70-100); Phosphorus 3.4 mg/dL (2.5-5.0); Sodium 124 mmol/L (135-145)
[2020-12-06 18:56] LABS: Calcium 5.1 mg/dL (8.6-10.3)
[2020-12-07] MEDS: LORazepam 2 mg VIAL 1 ml IV PUSH PRN ×4 (00:12→23:01)
[2020-12-07] MEDS: metroNIDAZOLE IV 500 MG/100ML 500 MG/100 ML BAG IVPB SCH ×2 (04:49→16:15)
[2020-12-07 05:31] LABS: Hematocrit 28 % (35-47); Hemoglobin 9.5 g/dL (12.0-16.0); Mean Corpuscular HGB Conc 34 g/dL (31-36); Mean Corpuscular Hemoglobin 32 pg (27-31); Mean Corpuscular Volume 95 fL (80-97); Mean Platelet Volume 8.2 fL (7.4-10.4); Platelet Count 276 10^3/uL (150-450); Red Blood Count 2.95 10^6 /uL (3.70-4.87); Red Cell Distribution Width 14 % (10-15)
[2020-12-07 05:41] LABS: BUN/Creatinine Ratio 10.1 (8-20); EGFR African American 14.4 (>60); EGFR Non-African American 11.9 (>60); Magnesium 2.1 mg/dL (1.9-2.7); Phosphorus 3.2 mg/dL (2.5-5.0)
[2020-12-07 05:46] LABS: Potassium 3.5 mmol/L (3.5-5.0)
[2020-12-07 05:47] LABS: Calcium 4.2 mg/dL (8.6-10.3)
[2020-12-07] MEDS: Metoclopramide 5 MG/ML VIAL (10 mg) IV SLOW PU SCH ×3 (05:54→19:10)
[2020-12-07] MEDS: Levothyroxine 100 MCG/5 ML VIAL IV SCH (05:54)
[2020-12-07 06:05] LABS: Polychromasia 2+
[2020-12-07 06:06] LABS: ABS Lymphocytes 1.1 10^3/ul (1.0-4.8); ABS Monocytes 0.7 10^3/ul (0-0.8); ABS Neutrophils 7.2 10^3/ul (1.5-7.7); ABS Nucleated RBC 0.5 10^3/ul; Eosinophil % 0.1 %; Lymphocyte % 12.5 %; Nucleated Red Blood Cells % 5.4
[2020-12-07] MEDS ORDERED: Calcium Gluconate 3 GM in NS 0.9% 250 ml 250 ML IV ONE (06:15)
[2020-12-07] MEDS: Pantoprazole VIAL 40 MG VIAL IV SCH (08:10)
[2020-12-07] MEDS: Heparin 5000 UNITS/ML 1 mL VIAL SUBCUT SCH ×2 (08:10→20:56)
[2020-12-07] MEDS: Cefepime 1 GM in Dextrose 1 GM/50 ML BAG IV SCH (08:10)
[2020-12-07] MEDS: DULoxetine DR 20 mg CAP PO SCH (12:50)
[2020-12-07] MEDS: Cholecalciferol (VIT D3) 1,000 unit TAB PO SCH (19:10)
[2020-12-08] MEDS: Albuterol HFA INHALER 8 gm MDI INH PRN (00:54)
[2020-12-08] MEDS: metroNIDAZOLE IV 500 MG/100ML 500 MG/100 ML BAG IVPB SCH ×2 (04:19→15:58)
[2020-12-08 04:47] LABS: EGFR African American 10.1 (>60); EGFR Non-African American 8.4 (>60); Potassium 3.6 mmol/L (3.5-5.0)
[2020-12-08 04:50] LABS: Hematocrit 26 % (35-47); Hemoglobin 8.8 g/dL (12.0-16.0); Mean Corpuscular HGB Conc 34 g/dL (31-36); Mean Corpuscular Hemoglobin 32 pg (27-31); Mean Corpuscular Volume 94 fL (80-97); Mean Platelet Volume 7.9 fL (7.4-10.4); Platelet Count 293 10^3/uL (150-450); Red Blood Count 2.79 10^6 /uL (3.70-4.87); Red Cell Distribution Width 14 % (10-15); White Blood Count 14.5 10^3/uL (3.5-10.8)
[2020-12-08] MEDS: Levothyroxine 100 MCG/5 ML VIAL IV SCH (05:11)
[2020-12-08 06:06] LABS: Microcytosis 1+; Polychromasia 2+
[2020-12-08 06:07] LABS: ABS Lymphocytes 0.8 10^3/ul (1.0-4.8); ABS Monocytes 0.6 10^3/ul (0-0.8); ABS Nucleated RBC 0.8 10^3/ul; Eosinophil % 0.3 %; Lymphocyte % 5.6 %; Nucleated Red Blood Cells % 5.8
[2020-12-08] MEDS: Cefepime 1 GM in Dextrose 1 GM/50 ML BAG IV SCH (08:45)
[2020-12-08] MEDS: DULoxetine DR 20 mg CAP PO SCH (08:45)
[2020-12-08] MEDS: Heparin 5000 UNITS/ML 1 mL VIAL SUBCUT SCH (08:46)
[2020-12-08] MEDS: Pantoprazole VIAL 40 MG VIAL IV SCH (08:46)
[2020-12-08] MEDS ORDERED: Albuterol/Ipratropium NEB.SOL (2.5/0.5 MG) 3 ML NEB.SOLN INH SCH (10:00)
[2020-12-08] MEDS: Ondansetron 4 mg VIAL 2 MG/ML 2 ml VIAL IV PRN (13:30)
[2020-12-08] MEDS: Albuterol/Ipratropium NEB.SOL (2.5/0.5 MG) 3 ML NEB.SOLN INH SCH ×3 (15:43→23:07)
[2020-12-08] MEDS: fentaNYL 100 mcg/2 ml 50 MCG/ML VIAL IV SLOW PU PRN ×2 (19:32→23:21)
[2020-12-08 19:49] LABS: Hematocrit 26 % (35-47); Hemoglobin 8.6 g/dL (12.0-16.0); Mean Corpuscular HGB Conc 33 g/dL (31-36); Mean Corpuscular Hemoglobin 32 pg (27-31); Mean Corpuscular Volume 95 fL (80-97); Mean Platelet Volume 7.8 fL (7.4-10.4); Platelet Count 278 10^3/uL (150-450); Red Blood Count 2.73 10^6 /uL (3.70-4.87); Red Cell Distribution Width 14 % (10-15); White Blood Count 16.6 10^3/uL (3.5-10.8)
[2020-12-09] MEDS ORDERED: fentaNYL 100 mcg/2 ml 50 MCG/ML VIAL IV SLOW PU ONE (00:27)
[2020-12-09] MEDS ORDERED: fentaNYL 100 mcg/2 ml 50 MCG/ML VIAL IV SLOW PU PRN (00:27)
[2020-12-09] MEDS: HYDROmorphone 1 MG/1 ML SYRINGE IV SLOW PU PRN ×3 (01:57→19:38)
[2020-12-09] MEDS: Albuterol/Ipratropium NEB.SOL (2.5/0.5 MG) 3 ML NEB.SOLN INH SCH ×5 (03:04→19:19)
[2020-12-09] MEDS: metroNIDAZOLE IV 500 MG/100ML 500 MG/100 ML BAG IVPB SCH ×2 (04:42→16:19)
[2020-12-09 04:53] LABS: Hematocrit 25 % (35-47); Hemoglobin 8.2 g/dL (12.0-16.0); Mean Corpuscular HGB Conc 33 g/dL (31-36); Mean Corpuscular Hemoglobin 31 pg (27-31); Mean Corpuscular Volume 95 fL (80-97); Mean Platelet Volume 7.9 fL (7.4-10.4); Platelet Count 297 10^3/uL (150-450); Red Blood Count 2.62 10^6 /uL (3.70-4.87); Red Cell Distribution Width 14 % (10-15); White Blood Count 14.8 10^3/uL (3.5-10.8)
[2020-12-09 05:09] LABS: BUN/Creatinine Ratio 12.6 (8-20); EGFR African American 9.3 (>60); EGFR Non-African American 7.7 (>60); Potassium 3.9 mmol/L (3.5-5.0)
[2020-12-09 05:25] LABS: Calcium 4.3 mg/dL (8.6-10.3)
[2020-12-09] MEDS: Levothyroxine 100 MCG/5 ML VIAL IV SCH (06:24)
[2020-12-09] MEDS: Pantoprazole VIAL 40 MG VIAL IV SCH (08:43)
[2020-12-09] MEDS: DULoxetine DR 20 mg CAP PO SCH ×3 (08:43→19:55)
[2020-12-09] MEDS: Cefepime 1 GM in Dextrose 1 GM/50 ML BAG IV SCH ×3 (08:43→19:49)
[2020-12-09] MEDS: Heparin 1,000 UNIT/ML 10 ml (10,000 UNITS) CATHLAB/DIALYSIS DIALYSIS ONE ×4 (08:50→12:52)
[2020-12-09] MEDS: Ondansetron 4 mg VIAL 2 MG/ML 2 ml VIAL IV PRN (10:16)
[2020-12-09 15:23] LABS: Albumin 3.3 g/dL (3.2-5.2); Albumin/Globulin Ratio 1.2 (1-3); Globulin 2.7 g/dL (2-4); Total Bilirubin 0.9 mg/dL (0.2-1.0)
[2020-12-09 17:58] LABS: Indirect Bilirubin 0.5 mg/dL (0.3-1.0)
[2020-12-10] MEDS: HYDROmorphone 1 MG/1 ML SYRINGE IV SLOW PU PRN ×5 (00:07→20:29)
[2020-12-10] MEDS: Albuterol/Ipratropium NEB.SOL (2.5/0.5 MG) 3 ML NEB.SOLN INH SCH ×4 (00:31→11:59)
[2020-12-10] MEDS: Ondansetron 4 mg VIAL 2 MG/ML 2 ml VIAL IV PRN ×2 (03:52→20:28)
[2020-12-10] MEDS: metroNIDAZOLE IV 500 MG/100ML 500 MG/100 ML BAG IVPB SCH ×2 (04:41→15:36)
[2020-12-10 05:20] LABS: Hematocrit 25 % (35-47); Hemoglobin 8.3 g/dL (12.0-16.0); Mean Corpuscular HGB Conc 33 g/dL (31-36); Mean Corpuscular Hemoglobin 31 pg (27-31); Mean Corpuscular Volume 94 fL (80-97); Mean Platelet Volume 8.1 fL (7.4-10.4); Platelet Count 335 10^3/uL (150-450); Red Blood Count 2.65 10^6 /uL (3.70-4.87); Red Cell Distribution Width 14 % (10-15); White Blood Count 16.1 10^3/uL (3.5-10.8)
[2020-12-10 05:38] LABS: BUN/Creatinine Ratio 12.2 (8-20); EGFR African American 12.8 (>60); EGFR Non-African American 10.6 (>60); Potassium 3.8 mmol/L (3.5-5.0)
[2020-12-10] MEDS: Prochlorperazine 5 mg/ml 2 ml VIAL (10 mg) IV PRN ×2 (05:38→22:59)
[2020-12-10] MEDS: Heparin 5000 UNITS/ML 1 mL VIAL SUBCUT SCH ×3 (05:41→21:24)
[2020-12-10] MEDS: Levothyroxine 100 MCG/5 ML VIAL IV SCH (05:42)
[2020-12-10 05:45] LABS: Calcium 5.8 mg/dL (8.6-10.3)
[2020-12-10] MEDS: Pantoprazole VIAL 40 MG VIAL IV SCH (08:06)
[2020-12-10] MEDS: Heparin 1,000 UNIT/ML 10 ml (10,000 UNITS) CATHLAB/DIALYSIS DIALYSIS ONE ×2 (11:40→14:22)
[2020-12-10] MEDS: DULoxetine DR 20 mg CAP PO SCH (14:33)
[2020-12-10] MEDS: Cefepime 1 GM in Dextrose 1 GM/50 ML BAG IV SCH (14:34)
[2020-12-10] MEDS ORDERED: TPN 24 HR with Dextrose 50% Water 500 ML, Amino Acid Infusion 10% 850 ML, Sterile Water... CENTR SCH (17:00)
[2020-12-11] MEDS: HYDROmorphone 1 MG/1 ML SYRINGE IV SLOW PU PRN ×6 (00:20→21:28)
[2020-12-11] MEDS ORDERED: Prochlorperazine 5 mg/ml 2 ml VIAL (10 mg) IV ONE (02:39)
[2020-12-11] MEDS ORDERED: Prochlorperazine 5 mg/ml 2 ml VIAL (10 mg) ONE (02:43)
[2020-12-11] MEDS: Albuterol HFA INHALER 8 gm MDI INH PRN ×3 (02:49→16:14)
[2020-12-11] MEDS: metroNIDAZOLE IV 500 MG/100ML 500 MG/100 ML BAG IVPB SCH ×2 (04:14→16:11)
[2020-12-11 04:29] LABS: Hematocrit 24 % (35-47); Hemoglobin 8.2 g/dL (12.0-16.0); Mean Corpuscular HGB Conc 34 g/dL (31-36); Mean Corpuscular Hemoglobin 32 pg (27-31); Mean Corpuscular Volume 94 fL (80-97); Mean Platelet Volume 7.8 fL (7.4-10.4); Platelet Count 334 10^3/uL (150-450); Red Blood Count 2.59 10^6 /uL (3.70-4.87); Red Cell Distribution Width 15 % (10-15); White Blood Count 16.9 10^3/uL (3.5-10.8)
[2020-12-11 04:33] LABS: Globulin 2.9 g/dL (2-4); Indirect Bilirubin 0.3 mg/dL (0.3-1.0); Magnesium 2.6 mg/dL (1.9-2.7); Phosphorus 5.7 mg/dL (2.5-5.0); Total Bilirubin 0.5 mg/dL (0.2-1.0); Total Protein 5.9 g/dL (6.4-8.9)
[2020-12-11 04:43] LABS: EGFR African American 12.2 (>60); EGFR Non-African American 10.1 (>60); Potassium 3.5 mmol/L (3.5-5.0)
[2020-12-11 04:45] LABS: Calcium 6.2 mg/dL (8.6-10.3)
[2020-12-11] MEDS: Levothyroxine 100 MCG/5 ML VIAL IV SCH (05:59)
[2020-12-11] MEDS: Heparin 5000 UNITS/ML 1 mL VIAL SUBCUT SCH ×3 (06:05→21:28)
[2020-12-11] MEDS: Ondansetron 4 mg VIAL 2 MG/ML 2 ml VIAL IV PRN ×3 (06:32→12:28)
[2020-12-11] MEDS: Pantoprazole VIAL 40 MG VIAL IV SCH (08:20)
[2020-12-11] MEDS ORDERED: HYDROmorphone 1 MG/1 ML SYRINGE ONE (12:20)
[2020-12-11] MEDS ORDERED: Prochlorperazine 5 mg/ml 2 ml VIAL (10 mg) IV PRN (12:32)
[2020-12-11] MEDS: Cefepime 1 GM in Dextrose 1 GM/50 ML BAG IV SCH (13:46)
[2020-12-11] MEDS: DULoxetine DR 20 mg CAP PO SCH (13:47)
[2020-12-11] MEDS: Lidocaine PATCH 5% PATCH TRANSDERM SCH (17:04)
[2020-12-11] MEDS: TPN 24 HR with Dextrose 50% Water 500 ML, Amino Acid Infusion 10% 850 ML, Sterile Water... CENTR SCH (17:05)
[2020-12-11] MEDS: Lidocaine Patch REMOVE PATCH PATCH OFF SCH (21:51)
[2020-12-12 04:33] LABS: Indirect Bilirubin 0.4 mg/dL (0.3-1.0); Phosphorus 7.5 mg/dL (2.5-5.0); Total Bilirubin 0.5 mg/dL (0.2-1.0)
[2020-12-12 04:46] LABS: Fibrinogen 428.9 mg/dL (110.8-404.3); INR 1.31 (0.82-1.09)
[2020-12-12] MEDS ORDERED: Sodium Bicarb 8.4% Vial 50 ML 75 MEQ in NS 0.45% 1000 ml BAG 1,000 ML IV SCH (05:00)
[2020-12-12 05:01] LABS: Albumin 2.8 g/dL (3.2-5.2); Calcium 6.6 mg/dL (8.6-10.3); Potassium 4.5 mmol/L (3.5-5.0); Total Bilirubin 0.5 mg/dL (0.2-1.0)
[2020-12-12 05:06] LABS: Hematocrit 26 % (35-47); Hemoglobin 8.4 g/dL (12.0-16.0); Mean Corpuscular HGB Conc 33 g/dL (31-36); Mean Corpuscular Hemoglobin 32 pg (27-31); Mean Corpuscular Volume 97 fL (80-97); Mean Platelet Volume 8.1 fL (7.4-10.4); Platelet Count 305 10^3/uL (150-450); Red Blood Count 2.66 10^6 /uL (3.70-4.87); Red Cell Distribution Width 15 % (10-15); White Blood Count 24.4 10^3/uL (3.5-10.8)
[2020-12-12 05:07] LABS: BUN/Creatinine Ratio 13.8 (8-20); EGFR African American 9.3 (>60); EGFR Non-African American 7.7 (>60); Globulin 2.7 g/dL (2-4); Total Protein 5.5 g/dL (6.4-8.9)
[2020-12-12] MEDS ORDERED: Sodium Bicarbonate 8.4% SYR 50 ml SYRINGE IV ONE (05:11)
[2020-12-12] MEDS ORDERED: Sodium Bicarbonate 8.4% VIAL 1 MEQ/ML 50 ml VIAL (50 meq) ONE (05:14)
[2020-12-12] MEDS: metroNIDAZOLE IV 500 MG/100ML 500 MG/100 ML BAG IVPB SCH ×2 (05:33→17:10)
[2020-12-12] MEDS: Heparin 5000 UNITS/ML 1 mL VIAL SUBCUT SCH ×3 (07:47→23:15)
[2020-12-12] MEDS ORDERED: Naloxone 0.4 mg VIAL 0.4 mg/ml 1 ml VIAL ONE (08:52)
[2020-12-12] MEDS ORDERED: fentaNYL 100 mcg/2 ml 50 MCG/ML VIAL ONE (08:52)
[2020-12-12 08:54] LABS: BUN/Creatinine Ratio 15.3 (8-20); Calcium 7.4 mg/dL (8.6-10.3); EGFR African American 32.4 (>60); EGFR Non-African American 26.8 (>60); Potassium 3.4 mmol/L (3.5-5.0)
[2020-12-12] MEDS ORDERED: Heparin 1,000 UNIT/ML 10 ml (10,000 UNITS) CATHLAB/DIALYSIS DIALYSIS ONE (09:00)
[2020-12-12] MEDS ORDERED: Norepinephrine 16MCG/ML IVPRE 4,000 MCG/250 ML BAG IV ONE (09:24)
[2020-12-12] MEDS: Norepinephrine 16MCG/ML IVPRE 4,000 MCG/250 ML BAG IV SCH (09:32)
[2020-12-12] MEDS ORDERED: Vancomycin 1,000 MG in NS 0.9% 250 ml 250 ML IVPB ONE (11:25)
[2020-12-12] MEDS: Levothyroxine 100 MCG/5 ML VIAL IV SCH (11:38)
[2020-12-12] MEDS: Pantoprazole VIAL 40 MG VIAL IV SCH (11:38)
[2020-12-12] MEDS: Lidocaine PATCH 5% PATCH TRANSDERM SCH (11:39)
[2020-12-12] MEDS ORDERED: Vancomycin per Pharmacy 1 EA NOTE FOLLOW UP SCH (12:00)
[2020-12-12] MEDS ORDERED: VANCOMYCIN 1500 MG X 1 DOSE, THEN PER PHARMACY PROTOCOL IVPB ONE (12:15)
[2020-12-12] MEDS: Cefepime 1 GM in Dextrose 1 GM/50 ML BAG IV SCH (14:15)
[2020-12-12] MEDS: DULoxetine DR 20 mg CAP PO SCH (15:00)
[2020-12-12 16:26] LABS: Body Fluid Source Peritonial Fluid
[2020-12-12] MEDS: TPN 24 HR with Dextrose 50% Water 500 ML, Amino Acid Infusion 10% 850 ML, Sterile Water... CENTR SCH (17:28)
[2020-12-12 18:02] LABS: C Reactive Protein 177.45 mg/L (<8.01)
[2020-12-12 20:00] LABS: Body Fluid Mono 14 %; Body Fluid Other Cells 5; Body Fluid Variant Lymph 11 %
[2020-12-12] MEDS: HYDROmorphone 1 MG/1 ML SYRINGE IV SLOW PU PRN (20:18)
[2020-12-12] MEDS: Ondansetron 4 mg VIAL 2 MG/ML 2 ml VIAL IV PRN (21:26)
[2020-12-12] MEDS: Lidocaine Patch REMOVE PATCH PATCH OFF SCH (21:28)
[2020-12-13] MEDS: HYDROmorphone 1 MG/1 ML SYRINGE IV SLOW PU PRN ×3 (00:39→09:55)
[2020-12-13] MEDS ORDERED: Dextrose 50% Syringe 50 ml 25 GM/50 ML SYRINGE IV PUSH PRN ×2 (02:19→21:20)
[2020-12-13] MEDS: metroNIDAZOLE IV 500 MG/100ML 500 MG/100 ML BAG IVPB SCH ×2 (04:52→15:32)
[2020-12-13] MEDS ORDERED: Vancomycin Random Level NOTE FOLLOW UP ONE (06:00)
[2020-12-13] MEDS: Heparin 5000 UNITS/ML 1 mL VIAL SUBCUT SCH ×3 (06:14→22:57)
[2020-12-13] MEDS: Levothyroxine 100 MCG/5 ML VIAL IV SCH (06:14)
[2020-12-13 06:44] LABS: Vancomycin Random 15.2 mcg/mL
[2020-12-13 06:46] LABS: Albumin 2.9 g/dL (3.2-5.2); Albumin/Globulin Ratio 0.9 (1-3); Globulin 3.2 g/dL (2-4); Indirect Bilirubin 0.3 mg/dL (0.3-1.0); Magnesium 2.9 mg/dL (1.9-2.7); Phosphorus 4.7 mg/dL (2.5-5.0); Total Bilirubin 0.4 mg/dL (0.2-1.0); Total Protein 6.1 g/dL (6.4-8.9)
[2020-12-13] MEDS ORDERED: Heparin 1,000 UNIT/ML 10 ml (10,000 UNITS) CATHLAB/DIALYSIS DIALYSIS ONE (08:00)
[2020-12-13] MEDS ORDERED: Albumin Human 25% 25 GM/100 ML BTL IV SCH (09:00)
[2020-12-13] MEDS: Norepinephrine 16MCG/ML IVPRE 4,000 MCG/250 ML BAG IV SCH (09:39)
[2020-12-13 09:47] LABS: BUN/Creatinine Ratio 14.3 (8-20); Calcium 8.4 mg/dL (8.6-10.3); EGFR African American 68.9 (>60); EGFR Non-African American 56.9 (>60); Potassium 3.4 mmol/L (3.5-5.0)
[2020-12-13 09:55] LABS: Hematocrit 27 % (35-47); Hemoglobin 8.9 g/dL (12.0-16.0); Mean Corpuscular HGB Conc 33 g/dL (31-36); Mean Corpuscular Hemoglobin 31 pg (27-31); Mean Corpuscular Volume 95 fL (80-97); Mean Platelet Volume 8.3 fL (7.4-10.4); Platelet Count 248 10^3/uL (150-450); Red Blood Count 2.82 10^6 /uL (3.70-4.87); Red Cell Distribution Width 15 % (10-15); White Blood Count 23.5 10^3/uL (3.5-10.8)
[2020-12-13 11:06] LABS: Polychromasia 1+
[2020-12-13 11:07] LABS: ABS Neutrophils 20.2 10^3/ul (1.5-7.7)
[2020-12-13 11:08] LABS: ABS Eosinophils 0.9 10^3/ul (0-0.6)
[2020-12-13] MEDS: Lidocaine PATCH 5% PATCH TRANSDERM SCH (11:33)
[2020-12-13] MEDS: Pantoprazole VIAL 40 MG VIAL IV SCH (11:33)
[2020-12-13] MEDS: Cefepime 1 GM in Dextrose 1 GM/50 ML BAG IV SCH (13:35)
[2020-12-13] MEDS: DULoxetine DR 20 mg CAP PO SCH (13:36)
[2020-12-13] MEDS: TPN 24 HR with Dextrose 50% Water 500 ML, Amino Acid Infusion 10% 850 ML, Sterile Water... CENTR SCH (17:31)
[2020-12-13] MEDS: Lidocaine Patch REMOVE PATCH PATCH OFF SCH (20:13)
[2020-12-14] MEDS: HYDROmorphone 1 MG/1 ML SYRINGE IV SLOW PU PRN ×2 (01:08→23:44)
[2020-12-14] MEDS: metroNIDAZOLE IV 500 MG/100ML 500 MG/100 ML BAG IVPB SCH ×2 (05:24→16:42)
[2020-12-14 05:56] LABS: Hematocrit 23 % (35-47); Hemoglobin 7.5 g/dL (12.0-16.0); Mean Corpuscular HGB Conc 34 g/dL (31-36); Mean Corpuscular Hemoglobin 32 pg (27-31); Mean Corpuscular Volume 95 fL (80-97); Mean Platelet Volume 8.3 fL (7.4-10.4); Platelet Count 207 10^3/uL (150-450); Red Blood Count 2.37 10^6 /uL (3.70-4.87); Red Cell Distribution Width 15 % (10-15)
[2020-12-14] MEDS: Levothyroxine 100 MCG/5 ML VIAL IV SCH (05:59)
[2020-12-14] MEDS: Heparin 5000 UNITS/ML 1 mL VIAL SUBCUT SCH ×3 (06:00→22:36)
[2020-12-14 06:08] LABS: BUN/Creatinine Ratio 14.6 (8-20); Calcium 7.4 mg/dL (8.6-10.3); EGFR African American 13.5 (>60); EGFR Non-African American 11.2 (>60); Potassium 4.3 mmol/L (3.5-5.0)
[2020-12-14 06:48] LABS: ABS Eosinophils 0.5 10^3/ul (0-0.6); ABS Lymphocytes 0.7 10^3/ul (1.0-4.8); ABS Monocytes 0.5 10^3/ul (0-0.8); ABS Neutrophils 15.3 10^3/ul (1.5-7.7); Eosinophil % 2.7 %; Lymphocyte % 4.1 %; Nucleated Red Blood Cells % 0.1; Polychromasia 1+
[2020-12-14] MEDS: Pantoprazole VIAL 40 MG VIAL IV SCH (09:28)
[2020-12-14] MEDS: Lidocaine PATCH 5% PATCH TRANSDERM SCH (09:29)
[2020-12-14] MEDS: Cefepime 1 GM in Dextrose 1 GM/50 ML BAG IV SCH (14:07)
[2020-12-14] MEDS: DULoxetine DR 20 mg CAP PO SCH ×2 (14:51→16:42)
[2020-12-14 15:10] LABS: Fluid Type, Glucose PERITONEAL; Glucose, BF 220 mg/dL
[2020-12-14 15:12] LABS: Albumin, BF 2.2 g/dL; Fluid Type, Albumin PERITONEAL; Fluid Type, Protein, Total PERITONEAL
[2020-12-14] MEDS: TPN 24 HR with Dextrose 50% Water 500 ML, Amino Acid Infusion 10% 850 ML, Sterile Water... CENTR SCH (16:43)
[2020-12-14] MEDS ORDERED: Haloperidol 5 mg/ml SDV IV/IM 5 MG/ML AMP IV SLOW PU PRN (17:51)
[2020-12-14] MEDS: Lidocaine Patch REMOVE PATCH PATCH OFF SCH (20:08)
[2020-12-15] MEDS: metroNIDAZOLE IV 500 MG/100ML 500 MG/100 ML BAG IVPB SCH ×2 (03:31→16:21)
[2020-12-15] MEDS: Heparin 5000 UNITS/ML 1 mL VIAL SUBCUT SCH ×3 (06:07→21:23)
[2020-12-15] MEDS: Levothyroxine 100 MCG/5 ML VIAL IV SCH (06:07)
[2020-12-15 06:14] LABS: Hematocrit 23 % (35-47); Hemoglobin 7.5 g/dL (12.0-16.0); Mean Corpuscular HGB Conc 32 g/dL (31-36); Mean Corpuscular Hemoglobin 31 pg (27-31); Mean Corpuscular Volume 97 fL (80-97); Mean Platelet Volume 8.5 fL (7.4-10.4); Platelet Count 202 10^3/uL (150-450); Red Blood Count 2.42 10^6 /uL (3.70-4.87); Red Cell Distribution Width 15 % (10-15); White Blood Count 16.7 10^3/uL (3.5-10.8)
[2020-12-15 06:27] LABS: BUN/Creatinine Ratio 17.8 (8-20); Calcium 7.5 mg/dL (8.6-10.3); EGFR African American 10.9 (>60); Magnesium 2.9 mg/dL (1.9-2.7); Phosphorus 4.4 mg/dL (2.5-5.0)
[2020-12-15 06:30] LABS: Potassium 5.5 mmol/L (3.5-5.0)
[2020-12-15 06:49] LABS: Polychromasia 1+
[2020-12-15 06:54] LABS: ABS Eosinophils 0.2 10^3/ul (0-0.6); ABS Monocytes 0.6 10^3/ul (0-0.8); ABS Neutrophils 14.9 10^3/ul (1.5-7.7); Eosinophil % 1.4 %; Lymphocyte % 6.1 %; Nucleated Red Blood Cells % 0.1
[2020-12-15] MEDS: Lidocaine PATCH 5% PATCH TRANSDERM SCH (07:15)
[2020-12-15] MEDS ORDERED: Furosemide 40 mg/4 ml IV VIAL IV ONE (09:08)
[2020-12-15] MEDS ORDERED: Sodium Bicarbonate 8.4% SYR 50 ml SYRINGE IV ONE (09:09)
[2020-12-15] MEDS: Pantoprazole VIAL 40 MG VIAL IV SCH (09:51)
[2020-12-15] MEDS: DULoxetine DR 20 mg CAP PO SCH (09:51)
[2020-12-15] MEDS: Cefepime 1 GM in Dextrose 1 GM/50 ML BAG IV SCH (12:46)
[2020-12-15] MEDS: Chlorhexidine MOUTHWASH 0.12% 15 ML UDC TOPICAL SCH ×3 (12:46→21:23)
[2020-12-15] MEDS ORDERED: Alteplase (CATHFLO) 2 MG VIAL IV ONE (14:52)
[2020-12-15 15:15] LABS: BUN/Creatinine Ratio 19.3 (8-20); Calcium 7.7 mg/dL (8.6-10.3); EGFR African American 10.7 (>60); EGFR Non-African American 8.8 (>60)
[2020-12-15 15:18] LABS: Potassium 5.5 mmol/L (3.5-5.0)
[2020-12-15 15:18] LABS: Lactate Dehydrogenase, BF 4884 U/L
[2020-12-15] MEDS ORDERED: TPN 24 HR with Dextrose 50% Water 500 ML, Amino Acid Infusion 10% 850 ML, Sterile Water... CENTR SCH (17:00)
[2020-12-15] MEDS ORDERED: Sodium Bicarb 8.4% Vial 50 ML 150 MEQ in D5W 1000 ml BAG 850 ML IV SCH (18:00)
[2020-12-15] MEDS: Lidocaine Patch REMOVE PATCH PATCH OFF SCH (21:24)
[2020-12-16] MEDS: Chlorhexidine MOUTHWASH 0.12% 15 ML UDC TOPICAL SCH ×7 (00:28→23:49)
[2020-12-16] MEDS: metroNIDAZOLE IV 500 MG/100ML 500 MG/100 ML BAG IVPB SCH ×2 (04:48→16:09)
[2020-12-16 04:55] LABS: Hematocrit 22 % (35-47); Hemoglobin 7.3 g/dL (12.0-16.0); Mean Corpuscular HGB Conc 33 g/dL (31-36); Mean Corpuscular Hemoglobin 31 pg (27-31); Mean Corpuscular Volume 96 fL (80-97); Mean Platelet Volume 8.5 fL (7.4-10.4); Platelet Count 216 10^3/uL (150-450); Red Blood Count 2.32 10^6 /uL (3.70-4.87); Red Cell Distribution Width 15 % (10-15); White Blood Count 13.9 10^3/uL (3.5-10.8)
[2020-12-16 05:12] LABS: BUN/Creatinine Ratio 21.6 (8-20); Calcium 7.5 mg/dL (8.6-10.3); EGFR Non-African American 9.1 (>60); Magnesium 2.9 mg/dL (1.9-2.7); Phosphorus 5.1 mg/dL (2.5-5.0)
[2020-12-16 05:17] LABS: Polychromasia 1+; Potassium 5.3 mmol/L (3.5-5.0)
[2020-12-16 05:18] LABS: ABS Eosinophils 0.1 10^3/ul (0-0.6); ABS Lymphocytes 0.7 10^3/ul (1.0-4.8); ABS Monocytes 0.5 10^3/ul (0-0.8); ABS Neutrophils 12.5 10^3/ul (1.5-7.7); Lymphocyte % 5.3 %; Nucleated Red Blood Cells % 0.3
[2020-12-16] MEDS: Heparin 5000 UNITS/ML 1 mL VIAL SUBCUT SCH ×3 (07:38→23:49)
[2020-12-16] MEDS ORDERED: Heparin 1,000 UNIT/ML 10 ml (10,000 UNITS) CATHLAB/DIALYSIS DIALYSIS ONE (08:00)
[2020-12-16] MEDS ORDERED: Sodium Bicarbonate 8.4% SYR 50 ml SYRINGE IV ONE (08:59)
[2020-12-16] MEDS ORDERED: Sodium Bicarbonate 8.4% VIAL 1 MEQ/ML 50 ml VIAL (50 meq) ONE (09:00)
[2020-12-16] MEDS ORDERED: Dextrose 50% VIAL 50 ml IV PRN (09:01)
[2020-12-16] MEDS ORDERED: Calcium CHLORIDE 10% SYRINGE 1 GM/10 ML IV ONE (09:01)
[2020-12-16] MEDS ORDERED: Dextrose 50% Syringe 50 ml 25 GM/50 ML SYRINGE IV PUSH ONE (09:03)
[2020-12-16] MEDS ORDERED: Midazolam 5 mg/5 ml VIAL 1 mg/ml 5 ml VIAL (5 mg) ONE (09:06)
[2020-12-16] MEDS ORDERED: Etomidate 40 mg/20 ml (2 MG/ML) 20 ml VIAL (40 mg) ONE (09:06)
[2020-12-16] MEDS ORDERED: Midazolam 2 mg/2 ml VIAL 1 mg/ml 2 ml VIAL (2 mg) IV SLOW PU ONE (09:23)
[2020-12-16] MEDS ORDERED: fentaNYL 100 mcg/2 ml 50 MCG/ML VIAL IV SLOW PU ONE (09:25)
[2020-12-16] MEDS ORDERED: Etomidate 20 mg/10 ml 2 MG/ML 10 ml VIAL IV ONE (09:25)
[2020-12-16] MEDS ORDERED: fentaNYL INFUSION 50 MCG/ML 2,500 MCG/50 ML BAG IV SCH (09:30)
[2020-12-16] MEDS ORDERED: Norepinephrine 16MCG/ML IVPRE 4,000 MCG/250 ML BAG IV ONE (09:36)
[2020-12-16] MEDS: Midazolam 50 MG VIAL IV DRIP 50 ML IV SCH (09:45)
[2020-12-16] MEDS ORDERED: Norepinephrine 16MCG/ML IVPRE 4,000 MCG/250 ML BAG IV SCH (10:00)
[2020-12-16] MEDS: Lidocaine PATCH 5% PATCH TRANSDERM SCH (10:02)
[2020-12-16 10:03] LABS: Hematocrit 22 % (35-47); Hemoglobin 7.3 g/dL (12.0-16.0); Mean Corpuscular HGB Conc 33 g/dL (31-36); Mean Corpuscular Hemoglobin 31 pg (27-31); Mean Corpuscular Volume 95 fL (80-97); Mean Platelet Volume 8.4 fL (7.4-10.4); Platelet Count 209 10^3/uL (150-450); Red Blood Count 2.35 10^6 /uL (3.70-4.87); Red Cell Distribution Width 15 % (10-15); White Blood Count 13.3 10^3/uL (3.5-10.8)
[2020-12-16 10:15] LABS: BUN/Creatinine Ratio 23.2 (8-20); Calcium 8.4 mg/dL (8.6-10.3); EGFR African American 22.2 (>60); EGFR Non-African American 18.4 (>60); Magnesium 2.3 mg/dL (1.9-2.7); Phosphorus 3.6 mg/dL (2.5-5.0); Potassium 3.8 mmol/L (3.5-5.0)
[2020-12-16 10:17] LABS: Troponin I 0.01 ng/mL (<0.03)
[2020-12-16 10:23] LABS: INR 1.49 (0.82-1.09)
[2020-12-16] MEDS ORDERED: Furosemide 100 mg/10 ml IV VIAL IV ONE (10:43)
[2020-12-16] MEDS ORDERED: Atropine 0.1 MG/ML 10 ml SYR (1 mg) IV ONE (11:50)
[2020-12-16] MEDS ORDERED: DOPamine 800 MG/250 ML IVPREM 800 MG/250 ML ML CENTR SCH (12:00)
[2020-12-16] MEDS: Levothyroxine 100 MCG/5 ML VIAL IV SCH (12:05)
[2020-12-16] MEDS: Pantoprazole VIAL 40 MG VIAL IV SCH (12:09)
[2020-12-16 14:10] LABS: ABS Eosinophils 0.1 10^3/ul (0-0.6); ABS Lymphocytes 0.8 10^3/ul (1.0-4.8); ABS Monocytes 0.5 10^3/ul (0-0.8); ABS Neutrophils 11.8 10^3/ul (1.5-7.7); ABS Nucleated RBC 0.3 10^3/ul; Eosinophil % 0.8 %; Lymphocyte % 6.2 %; Nucleated Red Blood Cells % 1.9
[2020-12-16 14:12] LABS: Polychromasia 2+
[2020-12-16] MEDS: Cefepime 1 GM in Dextrose 1 GM/50 ML BAG IV SCH (14:54)
[2020-12-16] MEDS: Lidocaine Patch REMOVE PATCH PATCH OFF SCH (20:27)
[2020-12-17] MEDS: Midazolam 50 MG VIAL IV DRIP 50 ML IV SCH (03:14)
[2020-12-17] MEDS: Chlorhexidine MOUTHWASH 0.12% 15 ML UDC TOPICAL SCH ×6 (04:30→23:29)
[2020-12-17] MEDS: metroNIDAZOLE IV 500 MG/100ML 500 MG/100 ML BAG IVPB SCH ×2 (04:30→16:35)
[2020-12-17 05:53] LABS: ABS Basophils 0.1 10^3/ul (0-0.2); ABS Eosinophils 0.2 10^3/ul (0-0.6); ABS Lymphocytes 0.8 10^3/ul (1.0-4.8); ABS Monocytes 0.5 10^3/ul (0-0.8); ABS Neutrophils 12.5 10^3/ul (1.5-7.7); ABS Nucleated RBC 0.2 10^3/ul; Eosinophil % 1.3 %; Hematocrit 21 % (35-47); Lymphocyte % 5.9 %; Mean Corpuscular HGB Conc 33 g/dL (31-36); Mean Corpuscular Hemoglobin 31 pg (27-31); Mean Corpuscular Volume 94 fL (80-97); Mean Platelet Volume 8.8 fL (7.4-10.4); Nucleated Red Blood Cells % 1.1; Platelet Count 234 10^3/uL (150-450); Red Blood Count 2.27 10^6 /uL (3.70-4.87); Red Cell Distribution Width 15 % (10-15); White Blood Count 14.1 10^3/uL (3.5-10.8)
[2020-12-17 06:21] LABS: BUN/Creatinine Ratio 21.7 (8-20); Calcium 7.7 mg/dL (8.6-10.3); EGFR African American 16.2 (>60); EGFR Non-African American 13.4 (>60); Magnesium 2.4 mg/dL (1.9-2.7); Phosphorus 6.3 mg/dL (2.5-5.0); Potassium 4.8 mmol/L (3.5-5.0)
[2020-12-17] MEDS: Heparin 5000 UNITS/ML 1 mL VIAL SUBCUT SCH ×3 (06:34→21:54)
[2020-12-17] MEDS: Levothyroxine 100 MCG/5 ML VIAL IV SCH (06:34)
[2020-12-17] MEDS: Pantoprazole VIAL 40 MG VIAL IV SCH (08:21)
[2020-12-17] MEDS: Saline FLUSH-CENTRAL 10 ML SYRINGE CENT\\PICC SCH ×2 (09:22→19:29)
[2020-12-17] MEDS: DULoxetine DR 20 mg CAP PO SCH (09:25)
[2020-12-17] MEDS: Furosemide 100 mg/10 ml IV VIAL IV SCH ×2 (09:53→17:51)
[2020-12-17] MEDS: Lidocaine PATCH 5% PATCH TRANSDERM SCH (11:05)
[2020-12-17] MEDS ORDERED: Vancomycin 1,500 MG in NS 0.9% 250 ml 250 ML IVPB ONE (11:30)
[2020-12-17] MEDS: Norepinephrine 16MCG/ML IVPRE 4,000 MCG/250 ML BAG IV ONE ×2 (13:00→15:30)
[2020-12-17 13:15] LABS: Urine Appearance Turbid; Urine Bilirubin Negative (Negative); Urine Blood 3+ (Negative); Urine Color Amber; Urine Glucose Negative (Negative); Urine Ketones Negative (Negative); Urine Nitrite Negative (Negative); Urine Protein 2+(100 mg/dL) (Negative); Urine Specific Gravity 1.013 (1.010-1.030); Urine Urobilinogen Negative (Negative)
[2020-12-17 13:20] LABS: Urine Bacteria 1+ (Absent); Urine Red Blood Cell 3+(>10/hpf) (Absent); Urine Squamous Epithelial Cell Present (Absent); Urine White Blood Cell 3+(>20/hpf) (Absent)
[2020-12-17] MEDS: Cefepime 1 GM in Dextrose 1 GM/50 ML BAG IV SCH (15:09)
[2020-12-17] MEDS ORDERED: Norepinephrine 16MCG/ML IVPRE 4,000 MCG/250 ML BAG IV SCH (16:00)
[2020-12-17] MEDS ORDERED: Vancomycin - DIALYSIS DOSING 1 EA NOTE FOLLOW UP SCH (17:00)
[2020-12-17] MEDS: Lidocaine Patch REMOVE PATCH PATCH OFF SCH (20:51)
[2020-12-18] MEDS: Furosemide 100 mg/10 ml IV VIAL IV SCH ×3 (01:16→18:13)
[2020-12-18] MEDS: Midazolam 50 MG VIAL IV DRIP 50 ML IV SCH (02:30)
[2020-12-18] MEDS: metroNIDAZOLE IV 500 MG/100ML 500 MG/100 ML BAG IVPB SCH (02:31)
[2020-12-18 04:14] LABS: Vancomycin Random 20.9 mcg/mL
[2020-12-18 04:15] LABS: Albumin 2.8 g/dL (3.2-5.2); Albumin/Globulin Ratio 0.8 (1-3); Globulin 3.6 g/dL (2-4); Indirect Bilirubin 0.3 mg/dL (0.3-1.0); Total Bilirubin 0.5 mg/dL (0.2-1.0); Total Protein 6.4 g/dL (6.4-8.9)
[2020-12-18] MEDS: Levothyroxine 100 MCG/5 ML VIAL IV SCH (04:49)
[2020-12-18] MEDS: Heparin 5000 UNITS/ML 1 mL VIAL SUBCUT SCH ×3 (04:50→21:43)
[2020-12-18] MEDS: Chlorhexidine MOUTHWASH 0.12% 15 ML UDC TOPICAL SCH ×6 (04:50→23:54)
[2020-12-18 05:27] LABS: Hematocrit 22 % (35-47); Hemoglobin 7.1 g/dL (12.0-16.0); Mean Corpuscular HGB Conc 33 g/dL (31-36); Mean Corpuscular Hemoglobin 31 pg (27-31); Mean Corpuscular Volume 95 fL (80-97); Mean Platelet Volume 8.7 fL (7.4-10.4); Platelet Count 264 10^3/uL (150-450); Red Blood Count 2.28 10^6 /uL (3.70-4.87); Red Cell Distribution Width 15 % (10-15); White Blood Count 15.9 10^3/uL (3.5-10.8)
[2020-12-18 05:45] LABS: Calcium 7.7 mg/dL (8.6-10.3); Potassium 5.1 mmol/L (3.5-5.0)
[2020-12-18 05:51] LABS: BUN/Creatinine Ratio 25.5 (8-20); EGFR African American 13.2 (>60); EGFR Non-African American 10.9 (>60)
[2020-12-18] MEDS: Acetaminophen IV 1 GM/100ML 100 ML IVPB ONE (05:59)
[2020-12-18] MEDS ORDERED: Vancomycin Random Level NOTE FOLLOW UP ONE (06:00)
[2020-12-18 06:14] LABS: ABS Basophils 0.1 10^3/ul (0-0.2); ABS Eosinophils 0.1 10^3/ul (0-0.6); ABS Lymphocytes 0.9 10^3/ul (1.0-4.8); ABS Monocytes 0.4 10^3/ul (0-0.8); ABS Neutrophils 14.4 10^3/ul (1.5-7.7); ABS Nucleated RBC 0.6 10^3/ul; Eosinophil % 0.4 %; Lymphocyte % 5.8 %; Nucleated Red Blood Cells % 3.8; Polychromasia 2+
[2020-12-18 06:18] LABS: Magnesium 2.5 mg/dL (1.9-2.7)
[2020-12-18 06:23] LABS: Phosphorus 7.8 mg/dL (2.5-5.0)
[2020-12-18] MEDS ORDERED: Albumin Human 25% 25 GM/100 ML IV PRN (06:55)
[2020-12-18] MEDS: Saline FLUSH-CENTRAL 10 ML SYRINGE CENT\\PICC SCH ×2 (07:21→21:41)
[2020-12-18] MEDS ORDERED: Heparin 1,000 UNIT/ML 10 ml (10,000 UNITS) CATHLAB/DIALYSIS DIALYSIS ONE (07:30)
[2020-12-18] MEDS: Norepinephrine 16MCG/ML IVPRE 4,000 MCG/250 ML BAG IV SCH ×2 (07:33→12:50)
[2020-12-18] MEDS: Albumin Human 25% 25 GM/100 ML BTL IV PRN ×2 (08:42→10:54)
[2020-12-18] MEDS: Lidocaine PATCH 5% PATCH TRANSDERM SCH (10:33)
[2020-12-18] MEDS ORDERED: Vancomycin 750 MG in NS 0.9% 250 ML IVPB ONE (12:00)
[2020-12-18] MEDS: Pantoprazole VIAL 40 MG VIAL IV SCH (12:15)
[2020-12-18] MEDS: Meropenem 500MG PREMIX(*) 500 MG/50 ML BAG IV SCH (15:41)
[2020-12-18] MEDS ORDERED: fentaNYL 100 mcg/2 ml 50 MCG/ML VIAL IV SLOW PU PRN (18:53)
[2020-12-18] MEDS: Lidocaine Patch REMOVE PATCH PATCH OFF SCH (21:41)
[2020-12-19] MEDS: Furosemide 100 mg/10 ml IV VIAL IV SCH ×3 (01:42→18:01)
[2020-12-19] MEDS: Chlorhexidine MOUTHWASH 0.12% 15 ML UDC TOPICAL SCH ×6 (02:37→23:25)
[2020-12-19 04:19] LABS: Hematocrit 20 % (35-47); Hemoglobin 6.4 g/dL (12.0-16.0); Mean Corpuscular HGB Conc 32 g/dL (31-36); Mean Corpuscular Hemoglobin 31 pg (27-31); Mean Corpuscular Volume 97 fL (80-97); Mean Platelet Volume 8.7 fL (7.4-10.4); Platelet Count 203 10^3/uL (150-450); Red Blood Count 2.06 10^6 /uL (3.70-4.87); Red Cell Distribution Width 15 % (10-15)
[2020-12-19 04:30] LABS: BUN/Creatinine Ratio 20.3 (8-20); Calcium 7.9 mg/dL (8.6-10.3); EGFR African American 13.9 (>60); EGFR Non-African American 11.5 (>60); Magnesium 2.4 mg/dL (1.9-2.7); Potassium 4.3 mmol/L (3.5-5.0)
[2020-12-19 04:37] LABS: ABS Basophils 0.1 10^3/ul (0-0.2); ABS Eosinophils 0.1 10^3/ul (0-0.6); ABS Lymphocytes 1.4 10^3/ul (1.0-4.8); ABS Monocytes 0.4 10^3/ul (0-0.8); ABS Nucleated RBC 0.4 10^3/ul; Eosinophil % 0.8 %; Lymphocyte % 8.8 %; Nucleated Red Blood Cells % 2.6; Polychromasia 1+
[2020-12-19] MEDS: Heparin 5000 UNITS/ML 1 mL VIAL SUBCUT SCH ×3 (04:46→21:16)
[2020-12-19] MEDS: Levothyroxine 100 MCG/5 ML VIAL IV SCH (04:46)
[2020-12-19] MEDS: Saline FLUSH-CENTRAL 10 ML SYRINGE CENT\\PICC SCH ×2 (07:55→20:27)
[2020-12-19] MEDS: Lidocaine PATCH 5% PATCH TRANSDERM SCH (08:59)
[2020-12-19] MEDS: Norepinephrine 16MCG/ML IVPRE 4,000 MCG/250 ML BAG IV SCH ×2 (09:07→18:01)
[2020-12-19] MEDS: Pantoprazole VIAL 40 MG VIAL IV SCH ×2 (09:24→19:41)
[2020-12-19 13:06] LABS: Hematocrit 24 % (35-47); Hemoglobin 7.9 g/dL (12.0-16.0); Mean Corpuscular HGB Conc 33 g/dL (31-36); Mean Corpuscular Hemoglobin 29 pg (27-31); Mean Corpuscular Volume 89 fL (80-97); Mean Platelet Volume 8.5 fL (7.4-10.4); Platelet Count 194 10^3/uL (150-450); Red Blood Count 2.72 10^6 /uL (3.70-4.87); Red Cell Distribution Width 21 % (10-15); White Blood Count 17.6 10^3/uL (3.5-10.8)
[2020-12-19] MEDS: fentaNYL INFUSION 50 MCG/ML 2,500 MCG/50 ML BAG IV SCH (13:53)
[2020-12-19] MEDS: Meropenem 500MG PREMIX(*) 500 MG/50 ML BAG IV SCH (15:41)
[2020-12-19] MEDS: Lidocaine Patch REMOVE PATCH PATCH OFF SCH (19:42)
[2020-12-19] MEDS ORDERED: Anidulafungin 100 MG in NS 0.9% 100 ml BAG 100 ML IVPB ONE (20:00)
[2020-12-19] MEDS: Anidulafungin 100 MG in NS 0.9% 100 ML IVPB SCH ×2 (20:27→22:02)
[2020-12-20] MEDS: Furosemide 100 mg/10 ml IV VIAL IV SCH ×3 (01:20→17:30)
[2020-12-20] MEDS: Chlorhexidine MOUTHWASH 0.12% 15 ML UDC TOPICAL SCH ×5 (04:28→20:12)
[2020-12-20 04:31] LABS: ABS Basophils 0.1 10^3/ul (0-0.2); ABS Eosinophils 0.1 10^3/ul (0-0.6); ABS Lymphocytes 1.3 10^3/ul (1.0-4.8); ABS Monocytes 0.5 10^3/ul (0-0.8); ABS Neutrophils 15.2 10^3/ul (1.5-7.7); Eosinophil % 0.6 %; Hematocrit 25 % (35-47); Hemoglobin 7.9 g/dL (12.0-16.0); Lymphocyte % 7.6 %; Mean Corpuscular HGB Conc 32 g/dL (31-36); Mean Corpuscular Hemoglobin 29 pg (27-31); Mean Corpuscular Volume 91 fL (80-97); Mean Platelet Volume 8.5 fL (7.4-10.4); Nucleated Red Blood Cells % 0.2; Platelet Count 199 10^3/uL (150-450); Red Blood Count 2.72 10^6 /uL (3.70-4.87); Red Cell Distribution Width 22 % (10-15); White Blood Count 17.2 10^3/uL (3.5-10.8)
[2020-12-20 04:45] LABS: Calcium 7.6 mg/dL (8.6-10.3); EGFR African American 11.4 (>60); EGFR Non-African American 9.4 (>60); Magnesium 2.4 mg/dL (1.9-2.7); Potassium 4.8 mmol/L (3.5-5.0); Vancomycin Random 16.4 mcg/mL
[2020-12-20] MEDS: Heparin 5000 UNITS/ML 1 mL VIAL SUBCUT SCH ×3 (05:05→21:30)
[2020-12-20] MEDS: Levothyroxine 100 MCG/5 ML VIAL IV SCH (05:05)
[2020-12-20] MEDS ORDERED: Vancomycin Random Level NOTE FOLLOW UP ONE (06:00)
[2020-12-20] MEDS: Saline FLUSH-CENTRAL 10 ML SYRINGE CENT\\PICC SCH ×2 (07:28→20:07)
[2020-12-20] MEDS: Norepinephrine 16MCG/ML IVPRE 4,000 MCG/250 ML BAG IV SCH ×2 (07:58→16:22)
[2020-12-20] MEDS: Heparin 1,000 UNIT/ML 10 ml (10,000 UNITS) CATHLAB/DIALYSIS DIALYSIS ONE ×4 (07:59→14:48)
[2020-12-20] MEDS: fentaNYL INFUSION 50 MCG/ML 2,500 MCG/50 ML BAG IV SCH ×2 (08:30→23:28)
[2020-12-20] MEDS: Lidocaine PATCH 5% PATCH TRANSDERM SCH (08:56)
[2020-12-20] MEDS: Pantoprazole VIAL 40 MG VIAL IV SCH ×2 (08:56→20:13)
[2020-12-20] MEDS: Albumin Human 25% 25 GM/100 ML BTL IV PRN ×2 (13:36→15:52)
[2020-12-20] MEDS: Meropenem 500MG PREMIX(*) 500 MG/50 ML BAG IV SCH (17:14)
[2020-12-20] MEDS ORDERED: Anidulafungin 200 MG in NS 0.9% 250 ml 200 ML IVPB SCH (21:00)
[2020-12-20] MEDS: Lidocaine Patch REMOVE PATCH PATCH OFF SCH (21:09)
[2020-12-21] MEDS: Norepinephrine 16MCG/ML IVPRE 4,000 MCG/250 ML BAG IV SCH (00:17)
[2020-12-21] MEDS: Chlorhexidine MOUTHWASH 0.12% 15 ML UDC TOPICAL SCH ×4 (01:15→12:00)
[2020-12-21] MEDS: Furosemide 100 mg/10 ml IV VIAL IV SCH ×2 (01:54→09:26)
[2020-12-21] MEDS ORDERED: LORazepam 2 mg VIAL 1 ml IV PUSH ONE ×2 (02:17→14:53)
[2020-12-21] MEDS ORDERED: Lorazepam PYXIS KEY PRN ×2 (02:17→14:53)
[2020-12-21] MEDS: Heparin 5000 UNITS/ML 1 mL VIAL SUBCUT SCH ×2 (05:44→14:11)
[2020-12-21] MEDS: Levothyroxine 100 MCG/5 ML VIAL IV SCH (05:44)
[2020-12-21 06:18] LABS: ABS Basophils 0.1 10^3/ul (0-0.2); ABS Eosinophils 0.1 10^3/ul (0-0.6); ABS Lymphocytes 0.9 10^3/ul (1.0-4.8); ABS Monocytes 0.4 10^3/ul (0-0.8); ABS Neutrophils 10.1 10^3/ul (1.5-7.7); ABS Nucleated RBC 0.2 10^3/ul; Eosinophil % 0.7 %; Hematocrit 23 % (35-47); Hemoglobin 7.4 g/dL (12.0-16.0); Lymphocyte % 7.4 %; Mean Corpuscular HGB Conc 33 g/dL (31-36); Mean Corpuscular Hemoglobin 30 pg (27-31); Mean Corpuscular Volume 91 fL (80-97); Mean Platelet Volume 8.4 fL (7.4-10.4); Nucleated Red Blood Cells % 1.8; Platelet Count 179 10^3/uL (150-450); Red Blood Count 2.48 10^6 /uL (3.70-4.87); Red Cell Distribution Width 21 % (10-15); White Blood Count 11.5 10^3/uL (3.5-10.8)
[2020-12-21 06:38] LABS: BUN/Creatinine Ratio 21.1 (8-20); EGFR African American 17.2 (>60); EGFR Non-African American 14.2 (>60); Magnesium 2.2 mg/dL (1.9-2.7); Phosphorus 9.5 mg/dL (2.5-5.0); Potassium 4.3 mmol/L (3.5-5.0)
[2020-12-21] MEDS: Saline FLUSH-CENTRAL 10 ML SYRINGE CENT\\PICC SCH (07:27)
[2020-12-21] MEDS: Pantoprazole VIAL 40 MG VIAL IV SCH (08:59)
[2020-12-21] MEDS: Lidocaine PATCH 5% PATCH TRANSDERM SCH (09:08)
[2020-12-21] MEDS ORDERED: Lorazepam PYXIS KEY ONE (13:04)
[2020-12-21] MEDS ORDERED: LORazepam 2 mg VIAL 1 ml ONE (13:05)
[2020-12-21] MEDS: fentaNYL INFUSION 50 MCG/ML 2,500 MCG/50 ML BAG IV SCH (13:23)
[2020-12-21] MEDS ORDERED: Acetaminophen IV 1 GM/100ML 100 ML IVPB ONE (13:44)
[2020-12-21 14:17] VITALS: BP 94/57
[2020-12-21] MEDS: Acetaminophen IV 1 GM/100ML 100 ML IVPB ONE (14:28)
== END 2020-12-21 15:33 | disposition short-term general hospital (02) | DRG 282 ==
LOC: ED 10:41 → MEDTELE 16:44 → ICU 12-04 12:49
PROVIDERS: ADMIT Internal Medicine; ATTEND Internal Medicine

== ENCOUNTER 2021-01-16 08:21 | Inpatient (IN) ==
[2021-01-16] MEDS ORDERED: Senna TAB 8.6 mg TAB PO PRN (15:34)
[2021-01-16] MEDS: Pancrelipase 5,000 units CAP PO SCH (16:47)
[2021-01-16] MEDS: COENZYME Q10 200 MG PO SCH (20:59)
[2021-01-17 06:36] LABS: ABS Eosinophils 0.1 10^3/ul (0-0.6); ABS Lymphocytes 0.7 10^3/ul (1.0-4.8); ABS Monocytes 0.8 10^3/ul (0-0.8); ABS Neutrophils 12.2 10^3/ul (1.5-7.7); Eosinophil % 0.4 %; Hematocrit 29 % (35-47); Hemoglobin 9.5 g/dL (12.0-16.0); Lymphocyte % 5.1 %; Mean Corpuscular HGB Conc 33 g/dL (31-36); Mean Corpuscular Hemoglobin 30 pg (27-31); Mean Corpuscular Volume 90 fL (80-97); Mean Platelet Volume 7.3 fL (7.4-10.4); Nucleated Red Blood Cells % 0.1; Platelet Count 480 10^3/uL (150-450); Red Cell Distribution Width 19 % (10-15); White Blood Count 13.8 10^3/uL (3.5-10.8)
[2021-01-17 06:49] LABS: Albumin 2.5 g/dL (3.2-5.2); Albumin/Globulin Ratio 0.7 (1-3); BUN/Creatinine Ratio 20.2 (8-20); Calcium 8.1 mg/dL (8.6-10.3); EGFR African American 89.1 (>60); EGFR Non-African American 73.7 (>60); Globulin 3.7 g/dL (2-4); Total Bilirubin 0.6 mg/dL (0.2-1.0); Total Protein 6.2 g/dL (6.4-8.9)
[2021-01-17] MEDS: Pancrelipase 5,000 units CAP PO SCH ×3 (07:36→16:15)
[2021-01-17] MEDS ORDERED: Pneumococcal Vac 23-Polyvalent IM ONE (09:00)
[2021-01-17] MEDS: DULoxetine DR 20 mg CAP PO SCH (09:53)
[2021-01-17 16:41] LABS: Urine Appearance Cloudy; Urine Bilirubin Negative (Negative); Urine Blood 1+ (Negative); Urine Color Amber; Urine Glucose Negative (Negative); Urine Ketones Trace (Negative); Urine Nitrite Negative (Negative); Urine Protein 1+(30 mg/dL) (Negative); Urine Specific Gravity 1.019 (1.010-1.030); Urine Urobilinogen Negative (Negative)
[2021-01-17 16:53] LABS: Urine Bacteria Absent (Absent); Urine Red Blood Cell 2+(6-10/hpf) (Absent); Urine Red Blood Cell Casts Present (Absent); Urine White Blood Cell 2+(11-20/hpf) (Absent)
[2021-01-17] MEDS: COENZYME Q10 200 MG PO SCH (21:05)
[2021-01-17] MEDS: Ondansetron ODT 4 mg TAB 4 MG TAB PO PRN (22:48)
[2021-01-18] MEDS: Pancrelipase 5,000 units CAP PO SCH ×3 (08:02→17:35)
[2021-01-18] MEDS: DULoxetine DR 20 mg CAP PO SCH (09:47)
[2021-01-18] MEDS: COENZYME Q10 200 MG PO SCH (21:41)
[2021-01-19] MEDS: Pancrelipase 5,000 units CAP PO SCH ×3 (07:36→17:01)
[2021-01-19] MEDS: Ondansetron ODT 4 mg TAB 4 MG TAB PO PRN ×2 (08:41→17:23)
[2021-01-19] MEDS: DULoxetine DR 20 mg CAP PO SCH (10:40)
[2021-01-19] MEDS: COENZYME Q10 200 MG PO SCH (20:52)
[2021-01-20] MEDS: Pancrelipase 5,000 units CAP PO SCH ×3 (09:39→18:04)
[2021-01-20] MEDS: DULoxetine DR 20 mg CAP PO SCH (09:40)
[2021-01-20] MEDS: Ondansetron ODT 4 mg TAB 4 MG TAB PO PRN (18:05)
[2021-01-20] MEDS: COENZYME Q10 200 MG PO SCH (22:11)
[2021-01-21 07:03] LABS: ABS Eosinophils 0.2 10^3/ul (0-0.6); ABS Lymphocytes 0.6 10^3/ul (1.0-4.8); ABS Neutrophils 6.3 10^3/ul (1.5-7.7); Eosinophil % 2.7 %; Hematocrit 27 % (35-47); Hemoglobin 8.8 g/dL (12.0-16.0); Lymphocyte % 7.6 %; Mean Corpuscular HGB Conc 32 g/dL (31-36); Mean Corpuscular Hemoglobin 30 pg (27-31); Mean Corpuscular Volume 91 fL (80-97); Mean Platelet Volume 7.2 fL (7.4-10.4); Nucleated Red Blood Cells % 0.3; Platelet Count 543 10^3/uL (150-450); Red Blood Count 2.98 10^6 /uL (3.70-4.87); Red Cell Distribution Width 18 % (10-15); White Blood Count 8.2 10^3/uL (3.5-10.8)
[2021-01-21 07:15] LABS: Albumin 2.5 g/dL (3.2-5.2); Albumin/Globulin Ratio 0.7 (1-3); BUN/Creatinine Ratio 22.1 (8-20); Calcium 8.3 mg/dL (8.6-10.3); EGFR African American 113.7 (>60); Globulin 3.7 g/dL (2-4); Potassium 3.8 mmol/L (3.5-5.0); Total Bilirubin 0.4 mg/dL (0.2-1.0); Total Protein 6.2 g/dL (6.4-8.9)
[2021-01-21] MEDS: DULoxetine DR 20 mg CAP PO SCH (09:35)
[2021-01-21] MEDS: Pancrelipase 5,000 units CAP PO SCH ×3 (09:35→16:29)
[2021-01-21] MEDS: Al Hydrox/Mg Hydrox/Simet LIQ 30 ML UDC PO PRN ×2 (16:30→17:05)
[2021-01-21] MEDS: COENZYME Q10 200 MG PO SCH (20:03)
[2021-01-22] MEDS: Pancrelipase 5,000 units CAP PO SCH ×3 (07:42→17:13)
[2021-01-22] MEDS: DULoxetine DR 20 mg CAP PO SCH (07:43)
[2021-01-22] MEDS: COENZYME Q10 200 MG PO SCH (20:04)
[2021-01-23] MEDS: Pancrelipase 5,000 units CAP PO SCH ×3 (07:40→16:29)
[2021-01-23] MEDS: DULoxetine DR 20 mg CAP PO SCH (07:40)
[2021-01-23] MEDS: COENZYME Q10 200 MG PO SCH (20:19)
[2021-01-24 06:54] LABS: Hematocrit 28 % (35-47); Hemoglobin 9.2 g/dL (12.0-16.0); Mean Corpuscular HGB Conc 33 g/dL (31-36); Mean Corpuscular Hemoglobin 29 pg (27-31); Mean Corpuscular Volume 90 fL (80-97); Platelet Count 670 10^3/uL (150-450); Red Blood Count 3.15 10^6 /uL (3.70-4.87); Red Cell Distribution Width 18 % (10-15); White Blood Count 10.2 10^3/uL (3.5-10.8)
[2021-01-24 07:10] LABS: Albumin 2.5 g/dL (3.2-5.2); Albumin/Globulin Ratio 0.6 (1-3); BUN/Creatinine Ratio 19.4 (8-20); Calcium 8.5 mg/dL (8.6-10.3); EGFR African American 115.7 (>60); EGFR Non-African American 95.6 (>60); Potassium 3.6 mmol/L (3.5-5.0); Total Bilirubin 0.4 mg/dL (0.2-1.0); Total Protein 6.5 g/dL (6.4-8.9)
[2021-01-24] MEDS: Pancrelipase 5,000 units CAP PO SCH ×3 (08:02→17:13)
[2021-01-24 08:11] LABS: ABS Eosinophils 0.1 10^3/ul (0-0.6); ABS Lymphocytes 0.7 10^3/ul (1.0-4.8); ABS Neutrophils 8.4 10^3/ul (1.5-7.7); Eosinophil % 1.1 %; Lymphocyte % 6.9 %; Nucleated Red Blood Cells % 0.4
[2021-01-24] MEDS: DULoxetine DR 20 mg CAP PO SCH (10:14)
[2021-01-24 13:54] LABS: ALT 36 U/L (7-52); AST 30 U/L (13-39); Albumin 2.5 g/dL (3.2-5.2); Albumin/Globulin Ratio 0.6 (1-3); Alkaline Phosphatase 683 U/L (34-104); Globulin 4.2 g/dL (2-4); Indirect Bilirubin 0.3 mg/dL (0.3-1.0); Total Protein 6.7 g/dL (6.4-8.9)
[2021-01-24] MEDS ORDERED: Lactated Ringers 1000 ml BAG 1,000 ML IV SCH (14:00)
[2021-01-24] MEDS ORDERED: Iodixanol (CONTRAST) 320 MG/ML 100 ML SDV IV ONE (14:38)
[2021-01-24] MEDS ORDERED: cefTRIAXone 1 gm/50 mL NS BAG 1 GM/50 ML BAG IVPB SCH (15:00)
[2021-01-24 15:03] LABS: Troponin I 0.04 ng/mL (<0.03)
[2021-01-24 15:53] LABS: Urine Appearance Turbid; Urine Bilirubin Negative (Negative); Urine Blood Negative (Negative); Urine Color Amber; Urine Glucose Negative (Negative); Urine Ketones Trace (Negative); Urine Nitrite Negative (Negative); Urine Protein 2+(100 mg/dL) (Negative); Urine Specific Gravity 1.021 (1.010-1.030); Urine Urobilinogen Negative (Negative)
[2021-01-24 15:55] LABS: Urine Bacteria Absent (Absent); Urine Red Blood Cell Absent (Absent); Urine Squamous Epithelial Cell Present (Absent); Urine White Blood Cell 3+(>20/hpf) (Absent)
[2021-01-24 16:35] LABS: Troponin I 0.03 ng/mL (<0.03)
[2021-01-24] MEDS ORDERED: Meropenem 2 GM in NS 0.9% 100 ml BAG 100 ML IVPB SCH (18:00)
[2021-01-24 18:33] VITALS: BP 136/73
== END 2021-01-24 20:10 | disposition short-term general hospital (02) | DRG 43 ==
LOC: PMRU 15:34
PROVIDERS: ADMIT Physical Medicine & Rehabilitation; ATTEND Physical Medicine & Rehabilitation

== ENCOUNTER 2021-01-24 18:25 | Inpatient (IN) ==
[2021-01-24] MEDS ORDERED: Ondansetron 4 mg VIAL 2 MG/ML 2 ml VIAL IV PRN (18:55)
[2021-01-24] MEDS ORDERED: Heparin DRIP 25,000 UNITS BAG 25,000 UNITS/500 ML BAG IV SCH (19:00)
[2021-01-24] MEDS ORDERED: Meropenem 2 GM in NS 0.9% 100 ml BAG 100 ML IVPB SCH (19:00)
[2021-01-24] MEDS ORDERED: Heparin 5000 UNITS/ML 1 mL VIAL IV SCH (19:00)
[2021-01-24] MEDS ORDERED: Al Hydrox/Mg Hydrox/Simet LIQ 30 ML UDC PO PRN (19:05)
[2021-01-24 19:48] LABS: Hematocrit 26 % (35-47); Hemoglobin 9.2 g/dL (12.0-16.0); Mean Corpuscular HGB Conc 35 g/dL (31-36); Mean Corpuscular Hemoglobin 31 pg (27-31); Mean Corpuscular Volume 89 fL (80-97); Mean Platelet Volume 6.9 fL (7.4-10.4); Platelet Count 668 10^3/uL (150-450); Red Blood Count 2.93 10^6 /uL (3.70-4.87); Red Cell Distribution Width 18 % (10-15)
[2021-01-24 20:03] LABS: EGFR African American 115.7 (>60); EGFR Non-African American 95.6 (>60)
[2021-01-24 20:27] LABS: ABS Eosinophils 0.1 10^3/ul (0-0.6); ABS Lymphocytes 0.8 10^3/ul (1.0-4.8); ABS Monocytes 0.8 10^3/ul (0-0.8); ABS Neutrophils 9.3 10^3/ul (1.5-7.7); ABS Nucleated RBC 0.1 10^3/ul; Eosinophil % 0.6 %; Lymphocyte % 7.4 %; Nucleated Red Blood Cells % 0.6
[2021-01-24] MEDS: NS 0.9% 1000 ml BAG 1,000 ML IV SCH (21:24)
[2021-01-24] MEDS: Heparin 5000 UNITS/ML 1 mL VIAL IV SCH (22:59)
[2021-01-24] MEDS: Heparin DRIP 25,000 UNITS BAG 25,000 UNITS/500 ML BAG IV SCH (23:00)
[2021-01-25] MEDS: Meropenem 2 GM in NS 0.9% 100 ml BAG 100 ML IVPB SCH ×3 (03:22→18:43)
[2021-01-25] MEDS: NS 0.9% 1000 ml BAG 1,000 ML IV SCH ×2 (04:56→20:51)
[2021-01-25 06:08] LABS: ABS Eosinophils 0.1 10^3/ul (0-0.6); ABS Lymphocytes 0.8 10^3/ul (1.0-4.8); ABS Monocytes 0.9 10^3/ul (0-0.8); ABS Neutrophils 8.9 10^3/ul (1.5-7.7); Hematocrit 28 % (35-47); Hemoglobin 8.9 g/dL (12.0-16.0); Lymphocyte % 7.6 %; Mean Corpuscular HGB Conc 32 g/dL (31-36); Mean Corpuscular Hemoglobin 29 pg (27-31); Mean Corpuscular Volume 92 fL (80-97); Mean Platelet Volume 7.3 fL (7.4-10.4); Nucleated Red Blood Cells % 0.3; Platelet Count 652 10^3/uL (150-450); Red Blood Count 3.05 10^6 /uL (3.70-4.87); Red Cell Distribution Width 18 % (10-15); White Blood Count 10.8 10^3/uL (3.5-10.8)
[2021-01-25 06:19] LABS: Albumin 2.2 g/dL (3.2-5.2); Albumin/Globulin Ratio 0.6 (1-3); Calcium 8.2 mg/dL (8.6-10.3); EGFR African American 126.5 (>60); EGFR Non-African American 104.6 (>60); Globulin 3.8 g/dL (2-4); Magnesium 1.6 mg/dL (1.9-2.7); Potassium 3.6 mmol/L (3.5-5.0); Total Bilirubin 0.3 mg/dL (0.2-1.0)
[2021-01-25] MEDS ORDERED: Magnesium Sulfate IV 3 GM in NS 0.9% 100 ml BAG 100 ML IVPB ONE (07:28)
[2021-01-25] MEDS: DULoxetine DR 20 mg CAP PO SCH (09:08)
[2021-01-25] MEDS: Pancrelipase 5,000 units CAP PO SCH ×3 (09:09→16:50)
[2021-01-25] MEDS ORDERED: Levalbuterol 1.25MG/0.5ML NEB.SOL INH PRN (11:34)
[2021-01-25] MEDS: Heparin DRIP 25,000 UNITS BAG 25,000 UNITS/500 ML BAG IV SCH (16:48)
[2021-01-25] MEDS: Heparin 5000 UNITS/ML 1 mL VIAL IV SCH (19:19)
[2021-01-26 00:50] LABS: Hematocrit 28 % (35-47); Hemoglobin 8.9 g/dL (12.0-16.0); Mean Corpuscular HGB Conc 32 g/dL (31-36); Mean Corpuscular Hemoglobin 29 pg (27-31); Mean Corpuscular Volume 90 fL (80-97); Mean Platelet Volume 7.1 fL (7.4-10.4); Platelet Count 625 10^3/uL (150-450); Red Blood Count 3.05 10^6 /uL (3.70-4.87); Red Cell Distribution Width 18 % (10-15); White Blood Count 10.1 10^3/uL (3.5-10.8)
[2021-01-26 01:05] LABS: Potassium 3.4 mmol/L (3.5-5.0)
[2021-01-26 01:06] LABS: BUN/Creatinine Ratio 21.4 (8-20); Calcium 8.2 mg/dL (8.6-10.3); EGFR African American 142.3 (>60); EGFR Non-African American 117.6 (>60); Magnesium 1.9 mg/dL (1.9-2.7)
[2021-01-26 01:09] LABS: ABS Eosinophils 0.4 10^3/ul (0-0.6); ABS Lymphocytes 0.5 10^3/ul (1.0-4.8); ABS Monocytes 0.5 10^3/ul (0-0.8); ABS Neutrophils 8.7 10^3/ul (1.5-7.7); Eosinophil % 3.7 %; Lymphocyte % 5.1 %; Nucleated Red Blood Cells % 0.3
[2021-01-26] MEDS: NS 0.9% 1000 ml BAG 1,000 ML IV SCH ×3 (03:36→20:02)
[2021-01-26] MEDS: Meropenem 2 GM in NS 0.9% 100 ml BAG 100 ML IVPB SCH ×3 (03:36→20:03)
[2021-01-26] MEDS ORDERED: Magnesium Sulfate IV 1GM/100ML 1 GM/100 ML BAG IV ONE (07:03)
[2021-01-26] MEDS: Pancrelipase 5,000 units CAP PO SCH ×3 (08:28→18:36)
[2021-01-26] MEDS: DULoxetine DR 20 mg CAP PO SCH (08:28)
[2021-01-26] MEDS: KCL 10 MEQ/50 ML IVPREMIX 10 MEQ/50 ML BAG IV SCH ×3 (08:28→13:00)
[2021-01-26 12:27] LABS: Body Fluid Source Pleural Fluid
[2021-01-26 13:05] LABS: Total Protein 3.8 g/dL (6.4-8.9)
[2021-01-26 13:49] LABS: Body Fluid Other Cells 4
[2021-01-26] MEDS: Heparin 5000 UNITS/ML 1 mL VIAL IV SCH (15:02)
[2021-01-26] MEDS: Heparin DRIP 25,000 UNITS BAG 25,000 UNITS/500 ML BAG IV SCH (20:00)
[2021-01-27] MEDS: Meropenem 2 GM in NS 0.9% 100 ml BAG 100 ML IVPB SCH ×3 (03:20→19:11)
[2021-01-27] MEDS: NS 0.9% 1000 ml BAG 1,000 ML IV SCH ×3 (03:20→20:12)
[2021-01-27 05:04] LABS: ABS Eosinophils 0.5 10^3/ul (0-0.6); ABS Lymphocytes 0.4 10^3/ul (1.0-4.8); ABS Monocytes 0.5 10^3/ul (0-0.8); ABS Neutrophils 6.9 10^3/ul (1.5-7.7); Eosinophil % 5.9 %; Hematocrit 30 % (35-47); Hemoglobin 9.4 g/dL (12.0-16.0); Lymphocyte % 5.3 %; Mean Corpuscular HGB Conc 31 g/dL (31-36); Mean Corpuscular Hemoglobin 29 pg (27-31); Mean Corpuscular Volume 92 fL (80-97); Nucleated Red Blood Cells % 0.1; Platelet Count 613 10^3/uL (150-450); Red Blood Count 3.29 10^6 /uL (3.70-4.87); Red Cell Distribution Width 19 % (10-15); White Blood Count 8.4 10^3/uL (3.5-10.8)
[2021-01-27 05:09] LABS: BUN/Creatinine Ratio 23.4 (8-20); Calcium 8.1 mg/dL (8.6-10.3); EGFR African American 174.2 (>60); Magnesium 1.8 mg/dL (1.9-2.7); Potassium 3.7 mmol/L (3.5-5.0)
[2021-01-27] MEDS ORDERED: Magnesium Sulfate 2 gm BAG 2 GM/50 ML BAG IVPB ONE (07:14)
[2021-01-27] MEDS: Pancrelipase 5,000 units CAP PO SCH ×3 (08:27→17:42)
[2021-01-27] MEDS: DULoxetine DR 20 mg CAP PO SCH (08:27)
[2021-01-27] MEDS: Heparin 5000 UNITS/ML 1 mL VIAL IV SCH (12:33)
[2021-01-27] MEDS: Heparin DRIP 25,000 UNITS BAG 25,000 UNITS/500 ML BAG IV SCH (15:38)
[2021-01-28] MEDS: NS 0.9% 1000 ml BAG 1,000 ML IV SCH (02:33)
[2021-01-28] MEDS: Meropenem 2 GM in NS 0.9% 100 ml BAG 100 ML IVPB SCH ×2 (02:35→11:51)
[2021-01-28 07:40] LABS: Hematocrit 27 % (35-47); Hemoglobin 8.8 g/dL (12.0-16.0); Mean Corpuscular HGB Conc 32 g/dL (31-36); Mean Corpuscular Hemoglobin 29 pg (27-31); Mean Corpuscular Volume 90 fL (80-97); Mean Platelet Volume 6.8 fL (7.4-10.4); Platelet Count 650 10^3/uL (150-450); Red Blood Count 3.02 10^6 /uL (3.70-4.87); Red Cell Distribution Width 18 % (10-15); White Blood Count 7.9 10^3/uL (3.5-10.8)
[2021-01-28 07:57] LABS: Calcium 7.7 mg/dL (8.6-10.3); Potassium 3.2 mmol/L (3.5-5.0)
[2021-01-28 08:02] LABS: BUN/Creatinine Ratio 20.8 (8-20); EGFR Non-African American 140.5 (>60)
[2021-01-28] MEDS: DULoxetine DR 20 mg CAP PO SCH (08:24)
[2021-01-28] MEDS: Pancrelipase 5,000 units CAP PO SCH ×3 (08:24→16:40)
[2021-01-28] MEDS ORDERED: Furosemide 20 mg/2 ml IV VIAL IV ONE (09:20)
[2021-01-28 09:58] LABS: Magnesium 1.8 mg/dL (1.9-2.7)
[2021-01-28] MEDS ORDERED: Potassium Chlor 20 meq TAB.ER PO ONE (10:00)
[2021-01-28 12:16] LABS: C Reactive Protein 144.22 mg/L (<8.01)
[2021-01-28] MEDS: Heparin DRIP 25,000 UNITS BAG 25,000 UNITS/500 ML BAG IV SCH (12:48)
[2021-01-28] MEDS ORDERED: Vancomycin per Pharmacy 1 EA NOTE FOLLOW UP SCH (14:00)
[2021-01-28 14:06] LABS: Body Fluid Source Pleural Fluid
[2021-01-28] MEDS ORDERED: Vancomycin 1500 MG IV - x ONCE IVPB ONE (14:30)
[2021-01-28 14:55] LABS: Lactate Dehydrogenase, BF 400 U/L
[2021-01-28] MEDS ORDERED: Vancomycin 1,750 MG in NS 0.9% 500 ml BAG 500 ML IVPB ONE (15:00)
[2021-01-28] MEDS: Heparin 5000 UNITS/ML 1 mL VIAL IV SCH (15:32)
[2021-01-28 17:16] LABS: Body Fluid Mono 8 %
[2021-01-28] MEDS ORDERED: Magnesium Sulfate 2 gm BAG 2 GM/50 ML BAG IVPB ONE (19:07)
[2021-01-28] MEDS: Vancomycin 1,250 MG in NS 0.9% 250 ml 250 ML IVPB SCH (21:15)
[2021-01-28] MEDS: Pantoprazole VIAL 40 MG VIAL IV SCH (21:15)
[2021-01-29] MEDS: Vancomycin 1,250 MG in NS 0.9% 250 ml 250 ML IVPB SCH ×2 (05:30→14:41)
[2021-01-29 06:46] LABS: Hematocrit 26 % (35-47); Hemoglobin 8.4 g/dL (12.0-16.0); Mean Corpuscular HGB Conc 32 g/dL (31-36); Mean Corpuscular Hemoglobin 29 pg (27-31); Mean Corpuscular Volume 91 fL (80-97); Mean Platelet Volume 7.1 fL (7.4-10.4); Platelet Count 575 10^3/uL (150-450); Red Blood Count 2.89 10^6 /uL (3.70-4.87); Red Cell Distribution Width 18 % (10-15); White Blood Count 9.1 10^3/uL (3.5-10.8)
[2021-01-29 07:13] LABS: BUN/Creatinine Ratio 15.7 (8-20); Calcium 7.8 mg/dL (8.6-10.3); EGFR African American 158.5 (>60); Potassium 3.4 mmol/L (3.5-5.0)
[2021-01-29] MEDS: DULoxetine DR 20 mg CAP PO SCH (08:36)
[2021-01-29] MEDS: Pancrelipase 5,000 units CAP PO SCH ×3 (08:36→17:42)
[2021-01-29] MEDS: Pantoprazole VIAL 40 MG VIAL IV SCH (08:37)
[2021-01-29 10:14] LABS: Fluid Type, Protein, Total PLEURAL
[2021-01-29] MEDS ORDERED: Potassium Chlor 20 meq TAB.ER PO ONE (10:20)
[2021-01-29] MEDS: Heparin DRIP 25,000 UNITS BAG 25,000 UNITS/500 ML BAG IV SCH (10:59)
[2021-01-29 11:39] LABS: Fluid Type, Amylase PLEURAL
[2021-01-29 11:41] LABS: Lactate Dehydrogenase, BF 333 U/L
[2021-01-29] MEDS ORDERED: Vancomycin Trough Check NOTE FOLLOW UP ONE (13:30)
[2021-01-29 14:23] LABS: EGFR African American 139.4 (>60); EGFR Non-African American 115.2 (>60)
[2021-01-29 14:39] LABS: Vancomycin Trough 26.8 mcg/mL
[2021-01-29 15:16] VITALS: BP 112/84
[2021-01-29] MEDS ORDERED: Vancomycin 1,250 MG in NS 0.9% 250 ml 250 ML IVPB SCH (21:00)
[2021-01-30 10:43] LABS: Fluid Type, Glucose PLEURAL; Glucose, BF 24 mg/dL
[2021-01-30 10:45] LABS: Fluid Type, Amylase PLEURAL; Fluid Type, Protein, Total PLEURAL
[2021-01-31] MEDS ORDERED: Vancomycin Trough Check NOTE FOLLOW UP ONE (08:30)
== END 2021-01-29 18:00 | disposition short-term general hospital (02) | DRG 143 ==
LOC: MEDTELE 20:43
PROVIDERS: ADMIT Hospitalist; ATTEND Internal Medicine

== ENCOUNTER 2021-02-13 08:21 | Inpatient (IN) ==
[2021-02-13] MEDS ORDERED: Senna TAB 8.6 mg TAB PO PRN (13:39)
[2021-02-13] MEDS ORDERED: Zosyn per Pharmacy NOTE FOLLOW UP SCH (14:00)
[2021-02-13] MEDS ORDERED: ZOSYN 3.375 GM x ONE DOSE over 30 miuntes IV (15:00)
[2021-02-13] MEDS: Pancrelipase 5,000 units CAP PO SCH (16:51)
[2021-02-13] MEDS: ZOSYN 3.375 GM Q8H per EXTENDED INFUSION IV SCH (20:21)
[2021-02-14] MEDS: ZOSYN 3.375 GM Q8H per EXTENDED INFUSION IV SCH ×2 (04:09→12:50)
[2021-02-14 06:21] LABS: ABS Eosinophils 0.1 10^3/ul (0-0.6); ABS Lymphocytes 0.6 10^3/ul (1.0-4.8); ABS Monocytes 0.8 10^3/ul (0-0.8); ABS Neutrophils 4.9 10^3/ul (1.5-7.7); Eosinophil % 2.2 %; Hematocrit 27 % (35-47); Lymphocyte % 8.7 %; Mean Corpuscular HGB Conc 33 g/dL (31-36); Mean Corpuscular Hemoglobin 30 pg (27-31); Mean Corpuscular Volume 91 fL (80-97); Mean Platelet Volume 7.2 fL (7.4-10.4); Platelet Count 457 10^3/uL (150-450); Red Blood Count 3.03 10^6 /uL (3.70-4.87); Red Cell Distribution Width 18 % (10-15); White Blood Count 6.4 10^3/uL (3.5-10.8)
[2021-02-14 06:38] LABS: Albumin 1.7 g/dL (3.2-5.2); Albumin/Globulin Ratio 0.4 (1-3); BUN/Creatinine Ratio 11.3 (8-20); Calcium 7.1 mg/dL (8.6-10.3); EGFR African American 151.6 (>60); EGFR Non-African American 125.3 (>60); Globulin 3.9 g/dL (2-4); Potassium 3.1 mmol/L (3.5-5.0); Total Bilirubin 0.4 mg/dL (0.2-1.0); Total Protein 5.6 g/dL (6.4-8.9)
[2021-02-14] MEDS: Pancrelipase 5,000 units CAP PO SCH ×3 (07:40→17:00)
[2021-02-14] MEDS: DULoxetine DR 20 mg CAP PO SCH (08:07)
[2021-02-14] MEDS: Potassium Chlor 20 meq TAB.ER PO SCH ×3 (10:05→20:26)
[2021-02-14] MEDS ORDERED: Magnesium Sulfate 2 gm BAG 2 GM/50 ML BAG IVPB ONE (10:54)
[2021-02-14] MEDS ORDERED: Ampicillin ADVAN 2 GM in NS 0.9% 100 ml BAG 100 ML IVPB SCH (17:00)
[2021-02-14] MEDS: Ampicillin ADVAN 2 GM in NS 0.9% 100 ml BAG 100 ML IVPB SCH (20:22)
[2021-02-14] MEDS: Bacitracin OINTMENT TUBE TOPICAL SCH ×2 (20:23→22:12)
[2021-02-14 21:38] LABS: C Reactive Protein 106.28 mg/L (<8.01)
[2021-02-15] MEDS: Ampicillin ADVAN 2 GM in NS 0.9% 100 ml BAG 100 ML IVPB SCH ×6 (00:09→20:07)
[2021-02-15 06:34] LABS: BUN/Creatinine Ratio 11.8 (8-20); Calcium 7.2 mg/dL (8.6-10.3); EGFR African American 158.5 (>60); Magnesium 1.8 mg/dL (1.9-2.7); Potassium 3.6 mmol/L (3.5-5.0)
[2021-02-15] MEDS: Potassium Chlor 20 meq TAB.ER PO SCH ×3 (10:07→20:06)
[2021-02-15] MEDS ORDERED: Magnesium Sulfate 2 gm BAG 2 GM/50 ML BAG IVPB ONE (10:17)
[2021-02-15] MEDS: Bacitracin OINTMENT TUBE TOPICAL SCH ×2 (10:25→20:04)
[2021-02-15] MEDS: DULoxetine DR 20 mg CAP PO SCH (10:25)
[2021-02-15] MEDS: Pancrelipase 5,000 units CAP PO SCH ×3 (12:10→16:29)
[2021-02-16] MEDS: Ampicillin ADVAN 2 GM in NS 0.9% 100 ml BAG 100 ML IVPB SCH ×6 (00:17→20:16)
[2021-02-16 06:49] LABS: BUN/Creatinine Ratio 13.6 (8-20); Calcium 7.2 mg/dL (8.6-10.3); EGFR Non-African American 155.3 (>60); Magnesium 1.7 mg/dL (1.9-2.7); Potassium 3.2 mmol/L (3.5-5.0)
[2021-02-16] MEDS: Pancrelipase 5,000 units CAP PO SCH ×3 (08:59→17:47)
[2021-02-16] MEDS ORDERED: Potassium Chlor 20 meq TAB.ER PO SCH (09:01)
[2021-02-16] MEDS ORDERED: Magnesium Sulfate IV 3 GM in NS 0.9% 100 ml BAG 100 ML IVPB ONE (09:30)
[2021-02-16] MEDS: DULoxetine DR 20 mg CAP PO SCH (09:37)
[2021-02-16] MEDS: Bacitracin OINTMENT TUBE TOPICAL SCH (10:48)
[2021-02-16] MEDS: Potassium Chlor 20 meq TAB.ER PO SCH (10:49)
[2021-02-16] MEDS: KCL 20 MEQ/100 ML IVPREMIX 20 MEQ/100 ML BAG IV SCH ×2 (12:40→12:49)
[2021-02-16] MEDS ORDERED: KCL 20 MEQ/100 ML IVPREMIX 20 MEQ/100 ML BAG IV ONE (14:40)
[2021-02-17] MEDS: Ampicillin ADVAN 2 GM in NS 0.9% 100 ml BAG 100 ML IVPB SCH ×6 (00:12→20:06)
[2021-02-17 06:37] LABS: BUN/Creatinine Ratio 13.3 (8-20); Calcium 7.1 mg/dL (8.6-10.3); EGFR African American 183.1 (>60); EGFR Non-African American 151.4 (>60); Potassium 3.5 mmol/L (3.5-5.0)
[2021-02-17] MEDS: Pancrelipase 5,000 units CAP PO SCH ×3 (08:46→16:23)
[2021-02-17] MEDS: DULoxetine DR 20 mg CAP PO SCH (12:13)
[2021-02-18] MEDS: Ampicillin ADVAN 2 GM in NS 0.9% 100 ml BAG 100 ML IVPB SCH ×6 (04:30→20:37)
[2021-02-18 05:22] LABS: ABS Eosinophils 0.1 10^3/ul (0-0.6); ABS Lymphocytes 0.5 10^3/ul (1.0-4.8); ABS Monocytes 0.6 10^3/ul (0-0.8); ABS Neutrophils 4.6 10^3/ul (1.5-7.7); Eosinophil % 1.9 %; Hematocrit 26 % (35-47); Hemoglobin 8.4 g/dL (12.0-16.0); Lymphocyte % 8.6 %; Mean Corpuscular HGB Conc 32 g/dL (31-36); Mean Corpuscular Hemoglobin 30 pg (27-31); Mean Corpuscular Volume 93 fL (80-97); Mean Platelet Volume 7.4 fL (7.4-10.4); Nucleated Red Blood Cells % 0.1; Platelet Count 402 10^3/uL (150-450); Red Blood Count 2.84 10^6 /uL (3.70-4.87); Red Cell Distribution Width 19 % (10-15); White Blood Count 5.8 10^3/uL (3.5-10.8)
[2021-02-18 05:47] LABS: Albumin 1.6 g/dL (3.2-5.2); Albumin/Globulin Ratio 0.4 (1-3); Calcium 7.3 mg/dL (8.6-10.3); EGFR African American 162.2 (>60); Globulin 3.8 g/dL (2-4); Potassium 3.3 mmol/L (3.5-5.0); Total Bilirubin 0.4 mg/dL (0.2-1.0); Total Protein 5.4 g/dL (6.4-8.9)
[2021-02-18] MEDS: Pancrelipase 5,000 units CAP PO SCH ×3 (08:05→16:26)
[2021-02-18 08:19] LABS: C Reactive Protein 107.27 mg/L (<8.01)
[2021-02-18] MEDS: DULoxetine DR 20 mg CAP PO SCH (10:15)
[2021-02-18] MEDS ORDERED: Al Hydrox/Mg Hydrox/Simet LIQ 30 ML UDC PO PRN (20:00)
[2021-02-19] MEDS: Ampicillin ADVAN 2 GM in NS 0.9% 100 ml BAG 100 ML IVPB SCH ×5 (00:02→16:59)
[2021-02-19] MEDS: Pancrelipase 5,000 units CAP PO SCH ×3 (07:35→17:22)
[2021-02-19] MEDS: DULoxetine DR 20 mg CAP PO SCH (08:27)
[2021-02-19] MEDS ORDERED: D5NS 0.9% 1000 ml BAG 1,000 ML IV SCH (12:00)
[2021-02-19] MEDS: D5W NS 0.9% 20Meq KCL 1000 ml 1,000 ML IV SCH (20:02)
[2021-02-19 23:38] LABS: ABS Lymphocytes 0.6 10^3/ul (1.0-4.8); ABS Monocytes 0.7 10^3/ul (0-0.8); Eosinophil % 0.1 %; Hematocrit 29 % (35-47); Hemoglobin 9.2 g/dL (12.0-16.0); Lymphocyte % 7.2 %; Mean Corpuscular HGB Conc 32 g/dL (31-36); Mean Corpuscular Hemoglobin 30 pg (27-31); Mean Corpuscular Volume 94 fL (80-97); Mean Platelet Volume 7.2 fL (7.4-10.4); Platelet Count 484 10^3/uL (150-450); Red Cell Distribution Width 19 % (10-15); White Blood Count 8.4 10^3/uL (3.5-10.8)
[2021-02-19 23:49] LABS: Albumin 1.7 g/dL (3.2-5.2); Calcium 7.4 mg/dL (8.6-10.3); Magnesium 1.7 mg/dL (1.9-2.7); Total Bilirubin 1.3 mg/dL (0.2-1.0)
[2021-02-19 23:55] LABS: Albumin/Globulin Ratio 0.4 (1-3); BUN/Creatinine Ratio 12.1 (8-20); EGFR Non-African American 112.4 (>60); Globulin 4.1 g/dL (2-4); Total Protein 5.8 g/dL (6.4-8.9)
[2021-02-20] MEDS ORDERED: Magnesium Sulfate IV 1GM/100ML 1 GM/100 ML BAG IV ONE (00:11)
[2021-02-20 00:32] LABS: C Reactive Protein 127.55 mg/L (<8.01)
[2021-02-20] MEDS ORDERED: Ondansetron 4 mg VIAL 2 MG/ML 2 ml VIAL IV ONE (00:34)
[2021-02-20] MEDS: Ampicillin ADVAN 2 GM in NS 0.9% 100 ml BAG 100 ML IVPB SCH ×6 (00:51→20:24)
[2021-02-20] MEDS ORDERED: Pantoprazole VIAL 40 MG VIAL IV SCH (01:00)
[2021-02-20] MEDS: KCL 20 MEQ/100 ML IVPREMIX 20 MEQ/100 ML BAG IV SCH ×3 (02:27→09:59)
[2021-02-20] MEDS: Pancrelipase 5,000 units CAP PO SCH ×3 (08:15→17:23)
[2021-02-20] MEDS: DULoxetine DR 20 mg CAP PO SCH (09:29)
[2021-02-20] MEDS: D5W NS 0.9% 20Meq KCL 1000 ml 1,000 ML IV SCH (14:53)
[2021-02-20] MEDS: Pantoprazole VIAL 40 MG VIAL IV SCH (21:28)
[2021-02-20] MEDS: Enoxaparin 80 MG/0.8 ML SYR SUBCUT SCH (21:28)
[2021-02-21] MEDS: Ampicillin ADVAN 2 GM in NS 0.9% 100 ml BAG 100 ML IVPB SCH ×6 (00:08→20:12)
[2021-02-21] MEDS: D5W NS 0.9% 20Meq KCL 1000 ml 1,000 ML IV SCH (04:36)
[2021-02-21 06:55] LABS: ABS Lymphocytes 0.7 10^3/ul (1.0-4.8); ABS Monocytes 0.4 10^3/ul (0-0.8); ABS Neutrophils 5.1 10^3/ul (1.5-7.7); Eosinophil % 0.5 %; Hematocrit 25 % (35-47); Hemoglobin 8.2 g/dL (12.0-16.0); Lymphocyte % 10.8 %; Mean Corpuscular HGB Conc 33 g/dL (31-36); Mean Corpuscular Hemoglobin 30 pg (27-31); Mean Corpuscular Volume 92 fL (80-97); Mean Platelet Volume 7.2 fL (7.4-10.4); Platelet Count 466 10^3/uL (150-450); Red Blood Count 2.72 10^6 /uL (3.70-4.87); Red Cell Distribution Width 19 % (10-15); White Blood Count 6.3 10^3/uL (3.5-10.8)
[2021-02-21] MEDS: Pancrelipase 5,000 units CAP PO SCH ×3 (07:46→16:49)
[2021-02-21] MEDS: DULoxetine DR 20 mg CAP PO SCH (09:55)
[2021-02-21] MEDS: Enoxaparin 80 MG/0.8 ML SYR SUBCUT SCH ×2 (10:23→20:12)
[2021-02-21] MEDS: Pantoprazole VIAL 40 MG VIAL IV SCH ×2 (10:30→20:12)
[2021-02-21 10:49] LABS: Albumin 1.6 g/dL (3.2-5.2); Albumin/Globulin Ratio 0.4 (1-3); BUN/Creatinine Ratio 10.7 (8-20); Calcium 7.2 mg/dL (8.6-10.3); EGFR African American 141.6 (>60); EGFR Non-African American 117.1 (>60); Globulin 3.7 g/dL (2-4); Potassium 3.7 mmol/L (3.5-5.0); Total Bilirubin 1.5 mg/dL (0.2-1.0); Total Protein 5.3 g/dL (6.4-8.9)
[2021-02-21] MEDS: Metoclopramide 5 MG/ML VIAL (10 mg) IV SCH ×2 (12:19→18:03)
[2021-02-22] MEDS: Metoclopramide 5 MG/ML VIAL (10 mg) IV SCH ×3 (00:09→12:28)
[2021-02-22] MEDS: Ampicillin ADVAN 2 GM in NS 0.9% 100 ml BAG 100 ML IVPB SCH ×5 (00:16→15:40)
[2021-02-22 06:28] LABS: ABS Eosinophils 0.1 10^3/ul (0-0.6); ABS Lymphocytes 0.7 10^3/ul (1.0-4.8); ABS Monocytes 0.5 10^3/ul (0-0.8); ABS Neutrophils 4.1 10^3/ul (1.5-7.7); Eosinophil % 1.1 %; Hematocrit 24 % (35-47); Hemoglobin 7.9 g/dL (12.0-16.0); Lymphocyte % 13.8 %; Mean Corpuscular HGB Conc 32 g/dL (31-36); Mean Corpuscular Hemoglobin 30 pg (27-31); Mean Corpuscular Volume 93 fL (80-97); Platelet Count 422 10^3/uL (150-450); Red Blood Count 2.62 10^6 /uL (3.70-4.87); Red Cell Distribution Width 19 % (10-15); White Blood Count 5.3 10^3/uL (3.5-10.8)
[2021-02-22 06:51] LABS: BUN/Creatinine Ratio 8.9 (8-20); Calcium 6.8 mg/dL (8.6-10.3); EGFR African American 141.6 (>60); EGFR Non-African American 117.1 (>60); Potassium 3.5 mmol/L (3.5-5.0)
[2021-02-22] MEDS: Enoxaparin 80 MG/0.8 ML SYR SUBCUT SCH (10:05)
[2021-02-22] MEDS: Pantoprazole VIAL 40 MG VIAL IV SCH (10:06)
[2021-02-22] MEDS: DULoxetine DR 20 mg CAP PO SCH (10:07)
[2021-02-22] MEDS: Pancrelipase 5,000 units CAP PO SCH ×3 (10:20→16:27)
[2021-02-22 15:49] VITALS: BP 114/72
[2021-02-22] MEDS ORDERED: Scopolamine PATCH Remove NOTE PATCH OFF SCH (23:00)
== END 2021-02-22 18:10 | disposition short-term general hospital (02) ==
LOC: PMRU 12:34
PROVIDERS: ADMIT Physical Medicine & Rehabilitation; ATTEND Physical Medicine & Rehabilitation